=== PATIENT | male | born 1960 | race Caucasian/White ===

== ENCOUNTER 2024-02-21 14:20 | Outpatient (AMB) | payer OTHER, SELFPAY ==
--- NOTE | 2024-02-21 14:27 | MHC.OFFVIS ---
Vital Signs 02/21/24 14:29 Height 5 ft 9 in Weight 180 lb 2 oz BMI 26.6 BP 140/78 H Blood Pressure Location Rt brachial Position Sitting Pulse 52 Pulse Source Pulse Oximeter Pulse Oximetry (%) 98 Oxygen Delivery Method Room Air Intake Visit Reasons: Cough Allergies No Known Allergies Allergy (Verified 02/21/24 14:31) HPI HPI Cough: Details: Zenon is a pleasant 63 year old male, never smoker, with underlying atrial fibrillation, MANINDER, BPH, CKDII and environmental allergies. He was referred by PCP for pulmonary evaluation. He reports new onset cough that developed about two months ago. He reports having increased palpitations and seeking emergent care at [facility], CTA performed which was negative for PE, ultimately being discharged on metoprolol for atrial fibrillation. At that visit, he did report having an elevated WBC. He reports afib dx in 2016 but has not been symptomatic until recent ED evaluation. Shortly after he was evaluated at [facility] he developed a dry cough with associated dyspnea with exertion. He had CXR performed at the start of symptoms which was reportedly negative. He denies further imaging since. He was also sent for fungal studies and mycoplasma pneumonia as he had recently traveled to [place], results not available today. He was then sent for PFT and methacholine challenge, both unremarkable. He was trialed on famotidine for possible silent reflux with no effect. He notes significant environmental allergies as a child, receiving allergen immunotherapy but allergies symptoms resolved as an adult. He notes recent lab work ordered by PCP which reportedly revealed multiple environmental allergies, results not available. He does have two dogs at home, not new. He was using zyrtec with minimal effect and switched to Jesenia as well as Flonase with no change. He also trialed OTC medications including mucinex, saline rinses as well as tessalon perles and codeine cough syrup with no change. He trialed albuterol MDI and singulair with no effect. He was also given a round of doxycycline for acute sinusitis and prednisone with no change in symptoms. He completed course of prednisone yesterday and continues with persistent dry cough, worse at night, intermittent wheezing, hoarseness and persistent throat clearing. He endorses multiple episodes of bronchitis in the past treated with zpak and prednisone however notes episodes were years apart. He reports mother, smoker, with COPD otherwise no pertinent family history. He denies any occupational exposures. He had recent echo and will be following up with model home sales greeter to review results to evaluate for any cardiac component contributing to dyspnea. He denies BLE or orthopnea. Of note, his metoprolol was switched by model home sales greeter to diltiazem with no change in symptoms. FORMERLY [facility], [facility]–1983 Social History (Updated 02/21/24 @ 14:44 by Lauren Zimmer TEACHER DANCING) Patient Tobacco Use Status: Never used Tobacco Review of Systems Const Denies chills, Denies excessive sweating, Denies fever(s) and Denies headache(s) Eyes Denies dry eyes, Denies irritation and Denies itchy eyes ENT Reports Normal hearing present, Denies headache(s), Denies nasal congestion, Denies nasal discharge and Denies sore throat Card Denies chest pain, Denies chest pain at rest, Denies chest pain with activity, Denies claudication, Denies leg edema, Denies orthopnea and Denies paroxysmal nocturnal dyspnea Resp Denies chest congestion, Denies excessive phlegm production, Denies pain on inspiration, Denies pain with cough, Denies stridor and Denies wheezing Musc Denies myalgias Neuro Reports Normal hearing present and Denies headache(s) Endo Denies excessive sweating Fili/Lymph Denies lymphadenopathy Aller/Immun Denies itchy eyes, Denies seasonal rhinorrhea and Denies wheezing Physical Exam Vital Signs: Last Vital Signs Pulse 52 02/21/24 14:29 BP 140/78 H 02/21/24 14:29 Pulse Ox 98 02/21/24 14:29 Oxygen Delivery Method Room Air 02/21/24 14:29 BMI result Body Mass Index 26.6 Const Other: hoarse voice General: cooperative, healthy appearing, comfortable, no acute distress, well developed and alert Orientation/consciousness: patient oriented x3 Limitations: no limitations HEENT Head: Yes normal to inspection, Yes normocephalic and Yes atraumatic Ears: hearing grossly normal bilaterally and external ears normal Eyes General: appearance normal, both eyes and all related structures Eyelids: Yes eyelids normal Sclerae: sclerae normal EOM: EOMs intact bilaterally Neck Neck: Yes normal visual inspection and Yes no lymphadenopathy Lymphatic: no lymphadenopathy noted Chest Chest palpation & inspection: normal inspection of the chest Resp Effort & Inspection: normal respiratory effort, able to speak in complete sentences, no audible wheezes, no cough, no stridor, not tachypneic, no tripod positioning and no use of accessory muscles Auscultation: clear to auscultation bilaterally Cardio Jugular venous distension: no JVD Rate: regular rate Rhythm: regular rhythm Skin Other: warm, dry General skin exam: no rashes or lesions noted Neuro General: patient oriented x3 Cranial nerves: Yes Normal hearing present Cognition (Neuro): normal cognition Gait exam (Neuro): Normal gait present Extrem General: Yes normal to inspection, Yes capillary refill normal, Yes no clubbing, cyanosis or edema and Yes no pedal edema Psych Appearance: grossly normal and well kempt Speech and movement: Normal speech and movement present and Clear speech present Affect: normal affect Attitude: cooperative Thought process: Normal thought process present Thought content: Normal thought content present Insight: Good insight present (Psych) Judgement: Good judgement present (Psych) Assessment & Plan Assessment & Plan (1) Cough: Code(s): R05.9 - Cough, unspecified Category: Medical (2) Environmental allergies: Code(s): Z91.09 - Other allergy status, other than to drugs and biological substances Category: Medical Plan Unclear etiology of persistent dry cough, although there may be an allergic component given prior history of significant allergies. Respiratory exam unremarkable, patient is in no distress, no hypoxia noted and afebrile. PFT and methacholine test unremarkable. Patient does note post nasal drip, will trial ipratropium nasal spray. Will request fungal, mycoplasma and allergen labs from PCP. Will also attempt to obtain CTA imaging from [facility]. Patient notes symptoms began after CTA performed and recent CXR negative. Will send for CT as patient with persistent cough despite trialing multiple medications. All questions were answered and patient is in agreement of plan. Will follow up to review CT results and response to nasal spray. Orders: Orders CT chest wo IV con Today R05.9 - Cough, unspecified Medications: New ipratropium bromide administer into each nostril 2 sprays intranasal BID 30 mL 3RF Coding Level of Care Code New Pt Level 4 (85890) Diagnoses Cough R05.9 Environmental allergies Z91.09
[2024-02-21 14:29] VITALS: BP 140/78; PULSE 52; O2SAT 98; BMI 26.6
== END 2024-02-21 15:22 | disposition home or self-care (01) ==
PROVIDERS: PCP Family Medicine; Referring Provider Family Medicine; Visit Provider Nurse Practitioner Family
DX: R05.9 Cough, unspecified (principal); Z91.09 Other allergy status, other than to drugs and biological substances
CPT/HCPCS: 99204

== ENCOUNTER → 2024-02-21 14:20 | Outpatient (BNVA) | payer OTHER, SELFPAY | PROVIDERS: PCP Family Medicine; Referring Provider Family Medicine; Visit Provider Nurse Practitioner Family ==

== ENCOUNTER 2024-03-06 13:10 | Outpatient (AMB) | payer OTHER, SELFPAY ==
[2024-03-06 13:22] VITALS: BP 132/88; PULSE 57; O2SAT 98; BMI 26.6
--- NOTE | 2024-03-06 13:22 | A.OFFVIS_ITS ---
Vital Signs 3 03/06/24 13:22 Height 5 ft 9 in Weight 180 lb 4 oz BMI 26.6 BP 132/88 Blood Pressure Location Lt brachial Position Sitting Pulse 57 Pulse Source Pulse Oximeter Pulse Oximetry (%) 98 Oxygen Delivery Method Room Air Intake Visit Reasons: Cough/ ER FU ([facility]) Allergies No Known Allergies Allergy (Verified 03/06/24 13:27) HPI HPI Cough/ ER FU ([facility]): Details: Zenon is a pleasant 63 year old male, never smoker, with underlying atrial fibrillation, MANINDER, BPH, CKDII and environmental allergies. He reports new onset cough that developed about 2-3 months ago. He reports having increased palpitations and seeking emergent care at [facility], CTA performed which was negative for PE, ultimately being discharged on metoprolol for atrial fibrillation which was switched to diltiazem by terrazzo tile setter. Shortly after he was evaluated at [facility] he developed a dry cough with associated dyspnea with exertion. He had CXR performed at the start of symptoms which was reportedly negative. He was also sent for fungal studies and mycoplasma pneumonia as he had recently traveled to [place], results not available today. He was then sent for PFT and methacholine challenge, both unremarkable. He was trialed on famotidine for possible silent reflux with no effect. He notes significant environmental allergies as a child, receiving allergen immunotherapy but allergies symptoms resolved as an adult. He notes recent lab work ordered by PCP which reportedly revealed multiple environmental allergies, results not available. He was using zyrtec with minimal effect and switched to Jesenia as well as Flonase with no change. He also trialed OTC medications including mucinex, saline rinses as well as tessalon perles and codeine cough syrup with no change. He trialed albuterol MDI and singulair with no effect. He was also given a round of doxycycline for acute sinusitis with no change in symptoms. At the last visit, he noted minimal change while on prednisone however today reports while on prednisone in the past had improvements then when course was completed, symptoms worsened. Today he presents for an ED follow up. He was evaluated on 03/01/24 for chest pain, palpitations and chronic cough. Upon arrival patient was in RVR 140s, however self converted to NSR. Troponins negative x 2, DDimer negative, no leukocytosis, anemia or electrolyte imbalance. Chest CT performed which revealed multiple ground glass opacities. Report below, images not available today. He continues to report productive cough with clear sputum, cough is worse towards the evening and at night interrupting sleep. He also endorses occasional wheezing. He is scheduled for a follow up with cardiology tomorrow. [facility] Social History Patient Tobacco Use Status: Never used Tobacco Review of Systems Const Denies chills, Denies excessive sweating, Denies fever(s) and Denies headache(s) Eyes Denies dry eyes, Denies irritation and Denies itchy eyes ENT Reports Normal hearing present, Denies headache(s), Denies nasal congestion, Denies nasal discharge and Denies sore throat Card Denies chest pain, Denies chest pain at rest, Denies chest pain with activity, Denies claudication, Denies leg edema, Denies orthopnea and Denies paroxysmal nocturnal dyspnea Resp Denies chest congestion, Denies excessive phlegm production, Denies pain on inspiration, Denies pain with cough and Denies stridor Musc Denies myalgias Neuro Reports Normal hearing present and Denies headache(s) Endo Denies excessive sweating Fili/Lymph Denies lymphadenopathy Aller/Immun Denies itchy eyes and Denies seasonal rhinorrhea Physical Exam Vital Signs: Last Vital Signs Pulse 57 03/06/24 13:22 BP 132/88 03/06/24 13:22 Pulse Ox 98 03/06/24 13:22 Oxygen Delivery Method Room Air 03/06/24 13:22 BMI result Body Mass Index 26.6 Const General: cooperative, healthy appearing, comfortable, no acute distress, well developed and alert Nutritional Appearance: obese Orientation/consciousness: patient oriented x3 Limitations: no limitations HEENT Head: Yes normal to inspection, Yes normocephalic and Yes atraumatic Ears: hearing grossly normal bilaterally and external ears normal Eyes General: appearance normal, both eyes and all related structures Eyelids: Yes eyelids normal Sclerae: sclerae normal EOM: EOMs intact bilaterally Neck Neck: Yes normal visual inspection and Yes no lymphadenopathy Lymphatic: no lymphadenopathy noted Chest Chest palpation & inspection: normal inspection of the chest Resp Other: faint inspiratory bibasilar crackles Effort & Inspection: normal respiratory effort, able to speak in complete sentences, no audible wheezes, no cough, no stridor, not tachypneic, no tripod positioning and no use of accessory muscles Cardio Jugular venous distension: no JVD Rate: regular rate Rhythm: regular rhythm Skin Other: warm, dry General skin exam: no rashes or lesions noted Neuro General: patient oriented x3 Cranial nerves: Yes Normal hearing present Cognition (Neuro): normal cognition Gait exam (Neuro): Normal gait present Extrem General: Yes normal to inspection, Yes capillary refill normal, Yes no clubbing, cyanosis or edema and Yes no pedal edema Psych Appearance: grossly normal and well kempt Speech and movement: Normal speech and movement present and Clear speech present Affect: normal affect Attitude: cooperative Thought process: Normal thought process present Thought content: Normal thought content present Insight: Good insight present (Psych) Judgement: Good judgement present (Psych) Results Reviewed Results Reviewed: Assessment & Plan Assessment & Plan (1) Cough: Code(s): R05.9 - Cough, unspecified Category: Medical (2) Environmental allergies: Code(s): Z91.09 - Other allergy status, other than to drugs and biological substances Category: Medical Plan Will request images of recent CT. Given patient has responded previously to prednisone and possibility of interstitial lung disease, will start on prednisone. Will also give cough syrup with codeine. Patient tolerated previously and aware not to operate any heavy machinery after use. Once reviewed images will call patient if treatment regimen needs to be adjusted. Patient aware if symptoms worsen to seek emergent care. May consider bronchoscopy in the future. Will again request fungal, mycoplasma and allergen labs from PCP. All questions were answered and patient is in agreement of plan. Will call patient after reviewing recent images. Medications: New 2 prednisone see taper instructions Take 4 pills daily for 5 days, then go down by 1 pill every 5 days; 20 days 50 tabs 0RF 10 mg PO DIRECTED 50 tabs 0RF codeine-guaifenesin 10-100 mg/5 mL 10 mL PO Q4-6H PRN 473 mL 0RF cough Coding Level of Care Code Est Pt Level 4 (14746) Diagnoses Cough R05.9 Environmental allergies Z91.09
== END 2024-03-06 13:54 | disposition home or self-care (01) ==
PROVIDERS: PCP Family Medicine; Visit Provider Nurse Practitioner Family
DX: R05.9 Cough, unspecified (principal); Z91.09 Other allergy status, other than to drugs and biological substances
CPT/HCPCS: 99214

== ENCOUNTER → 2024-03-06 13:10 | Outpatient (BNVA) | payer OTHER, SELFPAY | PROVIDERS: PCP Family Medicine; Visit Provider Nurse Practitioner Family ==

== ENCOUNTER 2024-03-27 13:04 | Outpatient (REF) | payer OTHER, SELFPAY | END 2024-03-27 13:05 | disposition home or self-care (01) | LOC: CF 13:04 | DX: Z13.89 Encounter for screening for other disorder (principal) ==

== ENCOUNTER 2024-04-12 07:28 | Outpatient (REF) | payer OTHER, SELFPAY ==
--- NOTE | ~2024-04-12 | CT_ITS ---
EXAMINATION: CT CHEST WITHOUT CONTRAST CLINICAL INFORMATION: Interstitial lung disease. COMPARISON: CT examinations of the chest dated 03/01/2024 and 01/02/2024. TECHNIQUE: Multidetector volumetric CT imaging of the chest was done. Axial MIP volume rendering provided. Sagittal and coronal reformatted images were obtained. This CT examination was performed using dose optimization techniques as appropriate, variously including the following: *Automated exposure control *Adjustment of mA and/or kV according to patient size (this includes techniques or standardized protocols for targeted exams where dose is matched to indication/reason for exam; i.e. extremities or head) *Use of iterative reconstruction technique DLP: 169 mGy-cm FINDINGS: PROJECT MANAGEMENT PROFESSOR: The lungs are symmetrically well-expanded and grossly clear. LUNGS: At the lateral right apex (11:35), a 3 mm noncalcified subpleural nodule is seen. This is stable from 01/02/2024. Laterally within the right upper lobe (11:47), a 2 mm benign pleural-based lymph node is seen. Within the anterior segment of the right upper lobe (11:78), a 1 mm noncalcified nodule is seen. This is stable from 01/02/2024. There is mild bibasilar dependent hyperinflation. There is no new nodule. No mass, infiltrate or groundglass opacity is seen. There is no generalized increase in peripheral interlobular septal markings. No honeycombing is seen. No generalized small airway thickening is seen. No bronchiectasis is seen. The central airways appear patent. MEDIASTINUM: The mediastinum is normal. CORONARY ARTERY CALCIFICATION: None visualized on this study. PLEURA: There is no pleural effusion. No pleural mass or thickening. AXILLA: No lymphadenopathy. UPPER ABDOMEN: Unremarkable. OSSEOUS STRUCTURES: There is multi-level mild spondylosis. No acute or aggressive osseous finding is noted. CT/CT chest wo IV con IMPRESSION: 1. There are small bilateral noncalcified lung nodules, the largest a 3 mm subpleural nodule at the lateral right apex. These are unchanged from 01/02/2024. According to the UPDATED 2017 Fleischner Society recommendations, the advised follow-up imaging for solid nodules < 6 mm is: LOW RISK PATIENT: No routine follow-up. HIGH RISK PATIENT: Optional CT at 12 months. 2. No mass, infiltrate or groundglass opacity is seen. 3. There is no thoracic lymphadenopathy or pleural effusion. 4. There is multi-level mild spondylosis. No acute or aggressive osseous finding is seen. Fleischner guidelines were followed. Electronically signed by: lAdair Ham MD 05/09/2024 10:46 AM EDT
== END 2024-04-12 07:29 | disposition home or self-care (01) ==
LOC: HO.CT 07:28
PROVIDERS: PCP Family Medicine; Visit Provider Nurse Practitioner Family
DX: J84.9 Interstitial pulmonary disease, unspecified (principal)
CPT/HCPCS: 71250

== ENCOUNTER 2024-04-27 11:02 | Outpatient (AMB) | payer OTHER, SELFPAY ==
[2024-04-27 11:26] VITALS: BP 130/76; PULSE 55; O2SAT 99; BMI 25.7
--- NOTE | 2024-04-27 11:26 | MHC.OFFVIS ---
Vital Signs 04/27/24 11:26 Height 5 ft 9 in Weight 174 lb 4 oz BMI 25.7 BP 130/76 Blood Pressure Location Rt brachial Position Sitting Pulse 55 Pulse Source Pulse Oximeter Pulse Oximetry (%) 99 Oxygen Delivery Method Room Air Intake Visit Reasons: cough Allergies No Known Allergies Allergy (Verified 04/27/24 11:29) HPI HPI cough: Details: Zenon is a pleasant 63 year old male, never smoker, with underlying atrial fibrillation, MANINDER, BPH, CKDII and environmental allergies. He reports new onset cough that developed about 3 months ago. At the last visit, he was started on prednisone for developing ILD with complete resolution of symptoms. He notes that he has been able to start exercising again as he feels back to baseline. He denies cough, wheezing, dyspnea or chest tightness. He denies any visits to urgent care or hospitalizations since the last visit. He denies any episodes of atrial fibrillation being triggered. Today he presents to review chest CT results, however not officially read by radiologist. [facility] Social History Patient Tobacco Use Status: Never used Tobacco Review of Systems Const Denies chills, Denies excessive sweating, Denies fever(s), Denies headache(s) and Denies night sweats Eyes Denies dry eyes, Denies irritation and Denies itchy eyes ENT Reports Normal hearing present, Denies headache(s), Denies nasal congestion, Denies nasal discharge, Denies post nasal drip and Denies sore throat Card Denies chest pain, Denies chest pain at rest, Denies chest pain with activity, Denies claudication, Denies leg edema, Denies dyspnea, Denies dyspnea on exertion, Denies orthopnea and Denies paroxysmal nocturnal dyspnea Resp Denies chest congestion, Denies cough, Denies excessive phlegm production, Denies pain on inspiration, Denies pain with cough, Denies dyspnea, Denies dyspnea on exertion, Denies stridor and Denies wheezing Musc Denies myalgias Neuro Reports Normal hearing present and Denies headache(s) Endo Denies excessive sweating Fili/Lymph Denies lymphadenopathy Aller/Immun Denies itchy eyes, Denies seasonal rhinorrhea and Denies wheezing Physical Exam Vital Signs: Last Vital Signs Pulse 55 04/27/24 11:26 BP 130/76 04/27/24 11:26 Pulse Ox 99 04/27/24 11:26 Oxygen Delivery Method Room Air 04/27/24 11:26 BMI result Body Mass Index 25.7 Const General: cooperative, healthy appearing, comfortable, no acute distress, well developed and alert Orientation/consciousness: patient oriented x3 Limitations: no limitations HEENT Head: Yes normal to inspection, Yes normocephalic and Yes atraumatic Ears: hearing grossly normal bilaterally and external ears normal Eyes General: appearance normal, both eyes and all related structures Eyelids: Yes eyelids normal Sclerae: sclerae normal EOM: EOMs intact bilaterally Neck Neck: Yes normal visual inspection and Yes no lymphadenopathy Lymphatic: no lymphadenopathy noted Chest Chest palpation & inspection: normal inspection of the chest Resp Effort & Inspection: normal respiratory effort, able to speak in complete sentences, no audible wheezes, no cough, no stridor, not tachypneic, no tripod positioning and no use of accessory muscles Auscultation: clear to auscultation bilaterally Cardio Jugular venous distension: no JVD Rate: regular rate Rhythm: regular rhythm Skin Other: warm, dry General skin exam: no rashes or lesions noted Neuro General: patient oriented x3 Cranial nerves: Yes Normal hearing present Cognition (Neuro): normal cognition Gait exam (Neuro): Normal gait present Extrem General: Yes normal to inspection, Yes capillary refill normal, Yes no clubbing, cyanosis or edema and Yes no pedal edema Psych Appearance: grossly normal and well kempt Speech and movement: Normal speech and movement present and Clear speech present Affect: normal affect Attitude: cooperative Thought process: Normal thought process present Thought content: Normal thought content present Insight: Good insight present (Psych) Judgement: Good judgement present (Psych) Assessment & Plan Assessment & Plan (1) Cough: Code(s): R05.9 - Cough, unspecified Category: Medical Plan Will call patient with final read when able. Appears to have radiographic improvements as well as patient with significant symptomatic improvements. Discussed possibly tapering prednisone and initiating ICS/LABA. Will continue prednisone for a total of three months. Reviewed possible adverse effects of penitentiary prednisone use. Will also send to assess for any underlying CTD. All questions were answered and patient is in agreement of plan. Will follow up with patient to review results or sooner if needed. Orders: Orders Complete Blood Count Auto Diff 04/27/24 J84.9 - Interstitial pulmonary disease, unspecified Erythrocyte Sedimentation Rate 04/27/24 J84.9 - Interstitial pulmonary disease, unspecified CRP High Sensitivity 04/27/24 J84.9 - Interstitial pulmonary disease, unspecified SHIN Reflex Titer and Pattern 04/27/24 J84.9 - Interstitial pulmonary disease, unspecified Scleroderma 70 Antibody 04/27/24 J84.9 - Interstitial pulmonary disease, unspecified Rheumatoid Factor 04/27/24 J84.9 - Interstitial pulmonary disease, unspecified Sjogren's Antibodies 04/27/24 J84.9 - Interstitial pulmonary disease, unspecified Medications: Refilled prednisone 40 mg (2 x 20 mg) PO DAILY 60 tabs 1RF Coding Level of Care Code Est Pt Level 4 (22699) Diagnoses Cough R05.9
== END 2024-04-27 11:59 | disposition home or self-care (01) ==
PROVIDERS: PCP Family Medicine; Visit Provider Nurse Practitioner Family
DX: R05.9 Cough, unspecified (principal)
CPT/HCPCS: 99214

== ENCOUNTER → 2024-04-27 11:02 | Outpatient (BNVA) | payer OTHER, SELFPAY | PROVIDERS: PCP Family Medicine; Visit Provider Nurse Practitioner Family ==

== ENCOUNTER 2024-04-27 12:46 | Outpatient (REF) | payer OTHER, SELFPAY ==
[2024-04-27 14:52] LABS: MANUAL DIFF FLAG NO
[2024-04-27 15:01] LABS: Basophils Percent Auto 0.1 % (0-2); Eosinophils Percent Auto 0.1 % (0-4); Hemoglobin 14.1 g/dl (14.0-18.0); Imm Gran Pct Auto 0.7 % (0.0-0.4); Lymphocytes Absolute Auto 0.9 X10*3/uL (1.2-4.9); Lymphocytes Percent Auto 6.6 % (20-40); Mean Corpuscular HGB Conc 33.6 g/dl (31.0-36.0); Mean Corpuscular Hemoglobin 30.7 pg (27.0-33.0); Mean Corpuscular Volume 91.5 fL (80.0-98.0); Mean Platelet Volume 11.5 fL (9.4-12.4); Monocytes Absolute Auto 0.5 X10*3/uL (0.1-1.2); Monocytes Percent Auto 3.7 % (2-11); Neutrophils Absolute Auto 11.9 x10*3/uL (2.0-8.3); Neutrophils Percent Auto 88.8 % (45-73); Platelet Count 215 X10*3/uL (160-400); Red Blood Count 4.59 X10*6/uL (4.60-5.80); Red Cell Distribution Width 13.9 % (11.0-16.0); White Blood Count 13.4 X10*3/uL (4.8-10.8)
[2024-04-27 15:10] LABS: Rheumatoid Factor < 13.0 IU/mL (<15.0)
[2024-04-27 15:43] LABS: Erythrocyte Sedimentation Rate 11 MM/HR (0-15)
[2024-04-29 15:54] LABS: Anti Nuclear Antibody Screen NEGATIVE (NEGATIVE)
[2024-04-30 08:53] LABS: CRP High Sensitivity >20.0 mg/L
[2024-05-01 20:42] LABS: Antibody to SS-A Antigen <1.0 NEG AI (<1.0 NEG); Antibody to SS-B Antigen <1.0 NEG AI (<1.0 NEG); Scleroderma 70 Antibody <1.0 NEG AI (<1.0 NEG)
== END 2024-04-27 12:47 | disposition home or self-care (01) ==
LOC: HO.WFDLDS 12:46
PROVIDERS: Visit Provider Nurse Practitioner Family
DX: J84.9 Interstitial pulmonary disease, unspecified (principal)
CPT/HCPCS: 36415; 85025; 85652; 86038; 86141; 86235; 86431

== ENCOUNTER 2024-06-05 14:54 | Outpatient (AMB) | payer OTHER, SELFPAY ==
--- NOTE | 2024-06-05 14:09 | A.OFFVIS_ITS ---
Vital Signs 06/05/24 15:03 Height 5 ft 9 in Weight 174 lb 2 oz BMI 25.7 BP 140/68 H Blood Pressure Location Lt brachial Position Sitting Pulse 66 Pulse Source Pulse Oximeter Pulse Oximetry (%) 98 Oxygen Delivery Method Room Air Intake Visit Reasons: Cough/[facility] ER Follow Up Allergies No Known Allergies Allergy (Verified 06/05/24 15:06) HPI HPI Cough/[facility] ER Follow Up: Details: Zenon is a pleasant 63 year old male, never smoker, with underlying atrial fibrillation, MANINDER, BPH, CKDII and environmental allergies. He reports new onset cough that developed about 3 months ago. At the last visit, he was started on prednisone for developing ILD with complete resolution of symptoms. He noted that he has been able to start exercising again as he feels back to baseline. He denies cough, wheezing, dyspnea or chest tightness. Unfortunately, he was recently evaluated at [facility] ED for increased episodes of atrial fibrillation which he was previously discussed with supervisor green end department who felt increased epsiodes are related to underlying ILD. Workup unremarkable through [facility]. EKG NSR. CT reported revealed improvements overall however continues with bibasilar ggo. Images not available today. He denies dyspnea, wheezing or chest tightness. He reports dry cough only when afib episodes occur. Otherwise respiratory symptoms have been controlled. [facility] Social History Patient Tobacco Use Status: Never used Tobacco Review of Systems Const Denies chills, Denies excessive sweating, Denies fever(s), Denies headache(s) and Denies night sweats Eyes Denies dry eyes, Denies irritation and Denies itchy eyes ENT Reports Normal hearing present, Denies headache(s), Denies nasal congestion, Denies nasal discharge, Denies post nasal drip and Denies sore throat Card Denies chest pain, Denies chest pain at rest, Denies chest pain with activity, Denies claudication, Denies leg edema, Denies dyspnea, Denies dyspnea on exertion, Denies orthopnea and Denies paroxysmal nocturnal dyspnea Resp Denies chest congestion, Denies cough, Denies excessive phlegm production, Denies pain on inspiration, Denies pain with cough, Denies dyspnea, Denies dyspnea on exertion, Denies stridor and Denies wheezing Musc Denies myalgias Neuro Reports Normal hearing present and Denies headache(s) Endo Denies excessive sweating Fili/Lymph Denies lymphadenopathy Aller/Immun Denies itchy eyes, Denies seasonal rhinorrhea and Denies wheezing Physical Exam Vital Signs: Last Vital Signs Pulse 66 06/05/24 15:03 BP 140/68 H 06/05/24 15:03 Pulse Ox 98 06/05/24 15:03 Oxygen Delivery Method Room Air 06/05/24 15:03 BMI result Body Mass Index 25.7 Const General: cooperative, healthy appearing, comfortable, no acute distress, well developed and alert Orientation/consciousness: patient oriented x3 Limitations: no limitations HEENT Head: Yes normal to inspection, Yes normocephalic and Yes atraumatic Ears: hearing grossly normal bilaterally and external ears normal Eyes General: appearance normal, both eyes and all related structures Eyelids: Yes eyelids normal Sclerae: sclerae normal EOM: EOMs intact bilaterally Neck Neck: Yes normal visual inspection and Yes no lymphadenopathy Lymphatic: no lymphadenopathy noted Chest Chest palpation & inspection: normal inspection of the chest Resp Effort & Inspection: normal respiratory effort, able to speak in complete sentences, no audible wheezes, no cough, no stridor, not tachypneic, no tripod positioning and no use of accessory muscles Auscultation: clear to auscultation bilaterally Cardio Jugular venous distension: no JVD Rate: regular rate Rhythm: regular rhythm Skin Other: warm, dry General skin exam: no rashes or lesions noted Neuro General: patient oriented x3 Cranial nerves: Yes Normal hearing present Cognition (Neuro): normal cognition Gait exam (Neuro): Normal gait present Extrem General: Yes normal to inspection, Yes capillary refill normal, Yes no clubbing, cyanosis or edema and Yes no pedal edema Psych Appearance: grossly normal and well kempt Speech and movement: Normal speech and movement present and Clear speech present Affect: normal affect Attitude: cooperative Thought process: Normal thought process present Thought content: Normal thought content present Insight: Good insight present (Psych) Judgement: Good judgement present (Psych) Assessment & Plan Assessment & Plan (1) Cough: Code(s): R05.9 - Cough, unspecified Category: Medical Plan Patient with increasing episodes of atrial fibrillation attributing to prednisone and interested in tapering. At this time, he denies any respiratory symptoms currently. During recent ED evaluation chest CT was performed, will obtain images. All questions were answered and patient is in agreement of plan. Will follow up in 6 weeks or sooner. Coding Level of Care Code Est Pt Level 3 (63304) Diagnoses Cough R05.9
[2024-06-05 15:03] VITALS: BP 140/68; PULSE 66; O2SAT 98; BMI 25.7
== END 2024-06-05 15:44 | disposition home or self-care (01) ==
PROVIDERS: PCP Family Medicine; Visit Provider Nurse Practitioner Family
DX: R05.9 Cough, unspecified (principal)
CPT/HCPCS: 99213

== ENCOUNTER → 2024-06-05 14:54 | Outpatient (BNVA) | payer OTHER, SELFPAY | PROVIDERS: PCP Family Medicine; Visit Provider Nurse Practitioner Family ==

== ENCOUNTER 2024-07-17 10:49 | Outpatient (AMB) | payer OTHER, SELFPAY ==
--- NOTE | 2024-07-17 10:40 | MHC.OFFVIS ---
Vital Signs 07/17/24 10:51 Height 5 ft 9 in Weight 177 lb 8 oz BMI 26.2 BP 134/68 Blood Pressure Location Rt brachial Position Sitting Pulse 57 Pulse Source Pulse Oximeter Pulse Oximetry (%) 99 Oxygen Delivery Method Room Air Intake Visit Reasons: Cough Allergies No Known Allergies Allergy (Verified 07/17/24 10:54) HPI HPI Cough: Details: Zenon is a pleasant 64 year old male, never smoker, with underlying atrial fibrillation, MANINDER, BPH, CKDII and environmental allergies. He reported new onset cough that developed about 6 months ago, CT revealed likely evolving ILD and was started on prednisone with resolution of symptoms. At the last visit, he noted his atrial fibrillation episodes were more frequent, with minimal respiratory symptoms and began tapering off prednisone. He has completely tapered off prednisone and discontinued diltiazem with resolution of respiratory symptoms and atrial fibrillation events. He denies any visits to urgent care or hospitalizations related to respiratory distress. He does not increased post nasal drip and will be trialing an antihistamine vs nasal spray. [facility] Social History Patient Tobacco Use Status: Never used Tobacco Review of Systems Const Denies chills, Denies excessive sweating, Denies fever(s), Denies headache(s) and Denies night sweats Eyes Denies dry eyes, Denies irritation and Denies itchy eyes ENT Reports Normal hearing present, Denies headache(s), Denies nasal congestion, Denies nasal discharge, Denies post nasal drip and Denies sore throat Card Denies chest pain, Denies chest pain at rest, Denies chest pain with activity, Denies claudication, Denies leg edema, Denies dyspnea, Denies dyspnea on exertion, Denies orthopnea and Denies paroxysmal nocturnal dyspnea Resp Denies chest congestion, Denies cough, Denies excessive phlegm production, Denies pain on inspiration, Denies pain with cough, Denies dyspnea, Denies dyspnea on exertion, Denies stridor and Denies wheezing Musc Denies myalgias Neuro Reports Normal hearing present and Denies headache(s) Endo Denies excessive sweating Fili/Lymph Denies lymphadenopathy Aller/Immun Denies itchy eyes, Denies seasonal rhinorrhea and Denies wheezing Physical Exam Vital Signs: Last Vital Signs Pulse 57 07/17/24 10:51 Pulse Ox 99 07/17/24 10:51 Oxygen Delivery Method Room Air 07/17/24 10:51 BMI result Body Mass Index 26.2 Const General: cooperative, healthy appearing, comfortable, no acute distress, well developed and alert Orientation/consciousness: patient oriented x3 Limitations: no limitations HEENT Head: Yes normal to inspection, Yes normocephalic and Yes atraumatic Ears: hearing grossly normal bilaterally and external ears normal Eyes General: appearance normal, both eyes and all related structures Eyelids: Yes eyelids normal Sclerae: sclerae normal EOM: EOMs intact bilaterally Neck Neck: Yes normal visual inspection and Yes no lymphadenopathy Lymphatic: no lymphadenopathy noted Chest Chest palpation & inspection: normal inspection of the chest Resp Effort & Inspection: normal respiratory effort, able to speak in complete sentences, no audible wheezes, no cough, no stridor, not tachypneic, no tripod positioning and no use of accessory muscles Auscultation: clear to auscultation bilaterally Cardio Jugular venous distension: no JVD Rate: regular rate Rhythm: regular rhythm Skin Other: warm, dry General skin exam: no rashes or lesions noted Neuro General: patient oriented x3 Cranial nerves: Yes Normal hearing present Cognition (Neuro): normal cognition Gait exam (Neuro): Normal gait present Extrem General: Yes normal to inspection, Yes capillary refill normal, Yes no clubbing, cyanosis or edema and Yes no pedal edema Psych Appearance: grossly normal and well kempt Speech and movement: Normal speech and movement present and Clear speech present Affect: normal affect Attitude: cooperative Thought process: Normal thought process present Thought content: Normal thought content present Insight: Good insight present (Psych) Judgement: Good judgement present (Psych) Assessment & Plan Assessment & Plan (1) Cough: Code(s): R05.9 - Cough, unspecified Category: Medical Plan Zenon reports resolution of cough since discontinuing prednisone. Denies chest tightness, wheezing or dyspnea. If symptoms start to recur will restart Breo. Encouraged patient to trial nasal spray or anithistamine for post nasal drip. Patient self d/c diltiazem and will be calling cardiology to discuss. All questions were answered and patient is in agreement of plan. Will follow up in 3 months or sooner if needed. Coding Level of Care Code Est Pt Level 3 (38157) Diagnoses Cough R05.9
[2024-07-17 10:51] VITALS: BP 134/68; PULSE 57; O2SAT 99; BMI 26.2
== END 2024-07-17 11:13 | disposition home or self-care (01) ==
PROVIDERS: PCP Family Medicine; Visit Provider Nurse Practitioner Family
DX: R05.9 Cough, unspecified (principal)
CPT/HCPCS: 99213

== ENCOUNTER → 2024-07-17 10:49 | Outpatient (BNVA) | payer OTHER, SELFPAY | PROVIDERS: PCP Family Medicine; Visit Provider Nurse Practitioner Family ==

== ENCOUNTER 2024-11-07 10:50 | Outpatient (AMB) | payer OTHER, SELFPAY ==
--- NOTE | 2024-11-07 10:59 | A.OFFVIS_ITS ---
Vital Signs 11/07/24 11:00 Height 5 ft 9 in Weight 190 lb BMI 28.1 BP 118/70 Blood Pressure Location Rt brachial Position Sitting Pulse 58 Pulse Source Pulse Oximeter Pulse Oximetry (%) 100 Oxygen Delivery Method Room Air Intake Visit Reasons: Cough Manager Dental Services: Manager Dental Offered & Declined Customer Service Teller: Customer Service Teller offered & declined Accompanied by: Self / Same As Patient Allergies No Known Allergies Allergy (Verified 11/07/24 11:06) Medication List - Last Reconciled 11/07/24 by Dianne Washburn LPN albuterol sulfate 90 mcg/actuation 2 puffs inhalation Q6H PRN cetirizine (Allergy Relief (cetirizine)) 10 mg PO DAILY PRN codeine-guaifenesin 10-100 mg/5 mL 10 mL PO Q4-6H PRN diltiazem HCl ER 120 mg PO DAILY famotidine 40 mg PO DAILY fluticasone furoate-vilanterol 200-25 mcg/dose (Breo Ellipta) 1 inh inhalation DAILY fluticasone propionate 50 mcg/actuation (Flonase Allergy Relief) 2 sprays intranasal DAILY gabapentin 200 mg at hs orally bedtime; ipratropium bromide 2 sprays intranasal BID prednisone 40 mg (2 x 20 mg) PO DAILY sertraline (Zoloft) 50 mg PO DAILY HPI HPI Cough: Details: Zenon is a pleasant 64 year old male, never smoker, with underlying atrial fibrillation, MANINDER, BPH, CKDII and environmental allergies. He was initialled referred after persistent dry cough developed over the summer. CT revealed likely evolving ILD with multiple areas of ggo. Initially trialed a short course of steroids for inflammatory process however once tapered/completed his symptoms recurred that were interfering with his daily activities. He has since completed a three month course of prednisone with resolution of symptoms. Repeat chest CT unremarkable from 05/2024. At the last visit, he noted his atrial fibrillation episodes were more frequent, with minimal respiratory symptoms and began tapering off prednisone. He has completely tapered off prednisone and discontinued diltiazem with resolution of respiratory symptoms and atrial fibrillation events. Unfortunately he reports over the last few weeks dry cough, occasionally productive in the AM with clear sputum and chest tightness have recurred. He denies dyspnea. Of note, he reports new prescription for metoprolol 25 mg which he will be restarting from cardiology, recent echo and EKG reportedly unremarkable. He also notes increased muscle fatigue as well as joint pain/stiffness in elbows, fingers, hips and ankles. Prior SHIN, RF, Scl-70, Anti- SSA and Anti-SSB, negative however CRP elevated. He denies any family history of autoimmune conditions. Since the last visit he denies any visits to urgent care or hospitalizations related to respiratory distress. [facility] Social History Patient Tobacco Use Status: Never used Tobacco Review of Systems Const Denies chills, Denies excessive sweating, Denies fever(s), Denies headache(s) and Denies night sweats Eyes Denies dry eyes, Denies irritation and Denies itchy eyes ENT Reports Normal hearing present, Denies headache(s), Denies nasal congestion, Denies nasal discharge, Denies post nasal drip and Denies sore throat Card Denies chest pain, Denies chest pain at rest, Denies chest pain with activity, Denies claudication, Denies leg edema, Denies dyspnea, Denies dyspnea on exertion, Denies orthopnea and Denies paroxysmal nocturnal dyspnea Resp Denies chest congestion, Denies excessive phlegm production, Denies pain on inspiration, Denies pain with cough, Denies dyspnea, Denies dyspnea on exertion, Denies stridor and Denies wheezing Musc Denies myalgias Neuro Reports Normal hearing present and Denies headache(s) Endo Denies excessive sweating Fili/Lymph Denies lymphadenopathy Aller/Immun Denies itchy eyes, Denies seasonal rhinorrhea and Denies wheezing Physical Exam Vital Signs: Last Vital Signs Pulse 58 11/07/24 11:00 BP 118/70 11/07/24 11:00 Pulse Ox 100 11/07/24 11:00 Oxygen Delivery Method Room Air 11/07/24 11:00 BMI result Body Mass Index 28.1 Const General: cooperative, healthy appearing, comfortable, no acute distress, well developed and alert Orientation/consciousness: patient oriented x3 Limitations: no limitations HEENT Head: Yes normal to inspection, Yes normocephalic and Yes atraumatic Ears: hearing grossly normal bilaterally and external ears normal Eyes General: appearance normal, both eyes and all related structures Eyelids: Yes eyelids normal Sclerae: sclerae normal EOM: EOMs intact bilaterally Neck Neck: Yes normal visual inspection and Yes no lymphadenopathy Lymphatic: no lymphadenopathy noted Chest Chest palpation & inspection: normal inspection of the chest Resp Effort & Inspection: normal respiratory effort, able to speak in complete sentences, no audible wheezes, no cough, no stridor, not tachypneic, no tripod positioning and no use of accessory muscles Auscultation: clear to auscultation bilaterally Cardio Jugular venous distension: no JVD Rate: regular rate Rhythm: regular rhythm Skin Other: warm, dry General skin exam: no rashes or lesions noted Neuro General: patient oriented x3 Cranial nerves: Yes Normal hearing present Cognition (Neuro): normal cognition Gait exam (Neuro): Normal gait present Extrem General: Yes normal to inspection, Yes capillary refill normal, Yes no clubbing, cyanosis or edema and Yes no pedal edema Psych Appearance: grossly normal and well kempt Speech and movement: Normal speech and movement present and Clear speech present Affect: normal affect Attitude: cooperative Thought process: Normal thought process present Thought content: Normal thought content present Insight: Good insight present (Psych) Judgement: Good judgement present (Psych) Assessment & Plan Assessment & Plan (1) Cough: Code(s): R05.9 - Cough, unspecified Category: Medical (2) Interstitial lung disease: Code(s): J84.9 - Interstitial pulmonary disease, unspecified Category: Medical (3) Joint pain: Code(s): M25.50 - Pain in unspecified joint Category: Medical Plan Zenon reports recurrence of cough which previously resolved with prednisone for evolving ILD. Will send for Chest CT to assess for recurrence of inflammatory process consistent with ILD. Will also repeat labs, prior CRP elevated before initiating prednisone. Encouraged patient to restart Breo. All questions were answered and patient is in agreement of plan. Will follow up to review results or sooner if needed. Orders: Orders Hypersensitive Pneumonitis Prf 11/07/24 J84.9 - Interstitial pulmonary disease, unspecified, R05.9 - Cough, unspecified CT chest wo IV con Today J84.9 - Interstitial pulmonary disease, unspecified, R 05.9 - Cough, unspecified CRP High Sensitivity 11/07/24 J84.9 - Interstitial pulmonary disease, unspecified, R05.9 - Cough, unspecified SHIN Reflex Titer and Pattern 11/07/24 M25.50 - Pain in unspecified joint Medications: Refilled fluticasone furoate-vilanterol 200-25 mcg/dose (Breo Ellipta) rinse mouth after each use 1 inh inhalation DAILY 60 ea 6RF Discontinued prednisone Discontinued Reason: Patient Completed Course 40 mg (2 x 20 mg) PO DAILY 60 tabs 1RF prednisone see taper instructions 30 mg x 7 days, 20 mg x 7 days, 10 mg x 7 days, 5 mg x 7 days Discontinued Reason: Patient Completed Course 10 mg PO DIRECTED 47 tabs 0RF Coding Level of Care Code Est Pt Level 4 (11610) Diagnoses Cough R05.9 Interstitial lung disease J84.9 Joint pain M25.50
[2024-11-07 11:00] VITALS: BP 118/70; PULSE 58; O2SAT 100; BMI 28.1
== END 2024-11-07 11:43 | disposition home or self-care (01) ==
LOC: HO.HPSW 10:51
PROVIDERS: PCP Family Medicine; Visit Provider Nurse Practitioner Family
DX: R05.9 Cough, unspecified (principal); J84.9 Interstitial pulmonary disease, unspecified; M25.50 Pain in unspecified joint
CPT/HCPCS: 99214

== ENCOUNTER → 2024-11-07 10:50 | Outpatient (BNVA) | payer OTHER, SELFPAY | PROVIDERS: PCP Family Medicine; Visit Provider Nurse Practitioner Family ==

== ENCOUNTER 2024-12-24 07:16 | Outpatient (REF) | payer OTHER, SELFPAY ==
--- NOTE | ~2024-12-24 | CT_ITS ---
CLINICAL HISTORY: J84.9 - Interstitial pulmonary disease, unspecified CT chest without contrast Comparison: CT/ME/SR - CT CHEST WO IV CON - 04/12/24 07:38 EDT Findings: The heart size is normal. The visualized thyroid and mediastinum are unremarkable. No evidence of pneumonia or edema. Stable lung nodules. For example, no change in the 3 mm nodule within the right posterolateral apex (image 14). No new pulmonary nodules. No evidence of interstitial lung disease. No focal air trapping. No bronchiectasis. The visualized upper abdomen is unremarkable. No acute fractures. IMPRESSION: 1. Stable small pulmonary nodules. No further follow-up necessary unless otherwise clinically warranted. 2. No evidence of interstitial lung disease. This document has been electronically signed by: Yamila Vela MD on 12/24/2024 14:31:53
--- OUTSIDE RECORDS SUMMARY | 2024-12-24 07:18 | XMS_ITS | Clinical Summary ---
Author Organization [facility] Facility Address [address] [address] Care Team Providers Care Exam Proctor Name Role Phone Candice Salas MD Primary Care Provider [phone] Allergies No known active allergies Medications aspirin (ST ANGI) 81 MG EC tablet Take 81 mg by mouth 1 (one) time each day Active metoprolol succinate XL (TOPROL XL) 50 MG 24 hr tablet Take 50 mg by mouth 1 (one) time each day Do not crush or chew. Active cetirizine (ZyrTEC) 10 MG chewable tablet Chew 10 mg 1 (one) time each day Active tamsulosin (FLOMAX) 0.4 MG 24 hr capsule Take 0.4 mg by mouth 1 (one) time each day Active fluticasone (VERAMYST) 27.5 MCG/SPRAY nasal spray Administer 2 sprays into each nostril 1 (one) time each day Active gabapentin (NEURONTIN) 600 MG tablet Take 600 mg by mouth in the morning and 600 mg in the evening and 600 mg before bedtime. Active Active Problems Problem Noted Date Diagnosed Date Chronic kidney disease stage 2 Family History Medical History Relation Comments Heart disease Father Hypertension Father Hypertension Mother Cancer Sibling Relation Status Comments Father Alive Mother Alive Sibling Social History Tobacco Use Types Packs/Day Years Used Date Smoking Tobacco: Never Alcohol Use Standard Drinks/Week Comments Yes 0 (1 standard drink = 0.6 oz pure alcohol) Alcoholic Drinks/day: 1-2 drinks per day Sex and Gender Information Value Date Recorded Sex Assigned at Not on file Legal Sex Male 4:42 PM EST Gender Identity Not on file Sexual Orientation Not on file Last Filed Vital Signs Vital Sign Reading Time Taken Comments Blood Pressure - - Pulse - - Temperature - - Respiratory Rate - - Oxygen Saturation - - Inhaled Oxygen Concentration - - Weight 79.4 kg (175 lb) 06/24/2022 2:55 PM EST Height - - Body Mass Index - - Plan of Treatment Health Maintenance Due Date Last Done Comments Pneumococcal Vaccine: 50+ Years (1 of 2 - PCV) 1980 Colorectal Cancer Screening: Annual FOBT 2010 Colorectal Cancer Screening: Colonoscopy 2010 Colorectal Cancer Screening: Sigmoidoscopy 2010 Influenza Vaccine (Season Ended) 2025 06/01/2022, 05/26/2021, 05/19/2020, Additional history exists Hepatitis B Vaccine Aged Out 12/10/1999, 07/18/1999, 06/05/1999 No longer eligible based on patient's age to complete this topic Insurance [employer] Care Teams Exam Proctor Relationship Specialty Start Date End Date Candice Salas MD [address] [id number] PCP - General Family Medicine 06/24/22
--- OUTSIDE RECORDS SUMMARY | 2024-12-24 07:19 | XMS_ITS | Data Portability ---
Author Organization [facility], Main Office Address [address] [facility] [address] [place] [id number] Care Team Providers Care Plastic Parts Fabricator Trimmer Name Role Phone GILDARDO SOLIS Urologist CAMI BUNDY Intern Product Marketing Manager ARUN WEN Master Motorcycle Technician PEREZ POON Primary Care Provider [phone] [facility] Pain[facility] [employer] [facility] Web Development Instructor Assessment No assessment recorded. Plan of Treatment Reminders Order Date Submit Date Provider Last Modified By Organization Details Last Modified Time Details Appointments None recorde d. Lab ESR (erythr ocyte sedimen tation rate), blood 2024 025 BREE [facility], [address] [place], [address], 22:05:49 uric acid, serum or plasma 2024 025 BREE [facility], [address] [place], [address], 5 22:05:48 rf (rheuma toid factor) , serum 2024 025 BREE [facility], [address] [place], [address], 22:05:47 SHIN (antinu clear antibod ies) screen, ifa, serum 2024 025 BREE [facility], [address], [place], [address], 22:05:46 borreli a burgdor feri IgG + IgM + total panel, IA, serum 2024 025 BREE [facility], [address], [place], [address], 22:05:48 TSH + free T4, serum 2024 025 BREE [facility] (Centralized Electronic Ordering - All Locations), Patient Can Go To The Location Of Their Choice, 08:08:31 CK (creati ne kinase) , total, serum 2024 025 BREE [facility] (Centralized Electronic Ordering - All Locations), Patient Can Go To The Location Of Their Choice, 08:08:32 CBC w/ auto diff 2024 025 N[facility]), Patient Can Go To The Location Of Their Choice, 08:08:29 erythro cyte sedimen tation rate by benerg marilia method 2024 025 NECHE [facility] ([facility] Order[facility] - All Locations), Patient Can Go To The Location Of Their Choice, 08:08:30 C reactiv e protein , QN, serum or plasma 2024 025 NECHE [facility] ([facility] Order[facility] - All Locations), Patient Can Go To The Location Of Their Choice, 08:08:32 lactate dehydro genase, QN, lactate to pyruvat e reactio n, serum or plasma 2024 025 BREE [facility] ([facility] - All Locations), Patient Can Go To The Location Of Their Choice, 08:08:30 CMP, serum or plasma 2024 025 BREE [facility] (Centralized Electronic Ordering - All Locations), Patient Can Go To The Location Of Their Choice, [id number] 5 08:08:28 heterop hile Ab, qualita tive latex aggluti nation, serum 2024 025 BREE [facility] (Centralized Electronic Ordering - All Locations), Patient Can Go To The Location Of Their Choice, [address] 5 08:08:31 lipid panel, serum 2023 024 [email or web address] [facility] (Centralized Electronic Ordering - All Locations), Patient Can Go To The Location Of Their Choice, [address] 4 09:22:12 CMP, serum or plasma 2023 024 BREE [facility] (Centralized Electronic Ordering - All Locations), Patient Can Go To The Location Of Their Choice, [address] 5 06:08:39 HbA1c (hemogl obin A1c), blood 2023 024 BREE [facility] (Centralized Electronic Ordering - All Locations), Patient Can Go To The Location Of Their Choice, [address] 5 06:08:41 Referral None recorde d. Procedures None recorde d. Surgeries None recorde d. Imaging XR, temporo mandibu lar joint, bilater al - Jaw pains for 2 months especia lly with chewing and yawning . 2024 025 [email or web address], [facility] [place], [address], 09:14:50 XR, cervica l spine - neck pain over last couple of weeks. 2024 025 christine [facility], [address] [place], [address], 09:14:49 US, neck, soft tissue - Swellin g at right neck at jaw line. R/o mass. 2024 025 brandi [facility], [address] [place], [address], 5 09:57:29 Medication Orders gabapen tin 100 mg capsule 2024 025 [email or web address] [facility]acy #1234, [address] [place], [address], 5 13:16:20 amoxici llin 875 mg-pota ssium clavula alysha 125 mg tablet 2024 025 [facility]acy #1234, [address] [place], [address], 5 11:40:18 gabapen tin 100 mg capsule 2024 025 [email or web address] [facility]acy #1234, [address] [place], [address], 5 12:55:37 sertral ine 25 mg tablet 2023 025 [facility]acy #1234, [address] [place], [address], 5 08:56:50 cetiriz ine 10 mg tablet 2023 024 [facility] [address] [place], [address], 4 11:03:45 Patient TargetsNo targets recorded. Patient Instructions Encounter Date Encounter Id Patient Instructions Last Modified By Organization Details Last Modified Time 07/06/2024 [id number] eustachian tube problems: care instructions jthabet Not available 07/06/2024 11:04:07 middle ear fluid : care instructions jthabet Not available 07/06/2024 11:04:07 To call or retur n for worsening or concerns jthabet Not available 07/06/2024 10:54:50 08/06/2024 [id number] When You Want to Lose Weight: Care Instructions ckokar Not available 08/06/2024 09:16:32 interstitial gt g disease: care instructions ckokar Not available 08/06/2024 09:16:00 Well Visit 50 to 65: Care Instructions ckokar Not available 08/06/2024 09:16:01 prediabetes: car e instructions ckokar Not available 08/06/2024 09:16:01 medicines to radu id with kidney disease: care instructions ckokar Not available 08/06/2024 09:16:00 When You Want to Lose Weight: Care Instructions ckokar Not available 08/06/2024 09:16:32 09/04/2024 [id number] To call or retur n for worsening or concerns jthabet Not available 09/04/2024 09:02:20 10/30/2024 [id number] temporomandibula r disorder: care instructions [email or web address] Not available 10/30/2024 13:20:58 Reason for Referral None Reported. Results Created Date Observation Date Name Description Value Unit Range Abnormal Flag Note LastModifiedBy Organization Detail LastModifiedTime 08/29/1908/29/2024 COMP. METAB OLIC PANEL (14) glucose 86 mg/dL 70-99 normal Not Available [facility] ([facility]) [address] [place], [address], 08/30/2024 06:08:39 08/29/19 25 08/29/2024 COMP. METAB OLIC PANEL (14) BUN 16 mg/dL 8-27 normal Not Available [facility] ([facility]) [address] [place], [address], 08/30/2024 06:08:39 08/29/19 25 08/29/2024 COMP. METAB OLIC PANEL (14) creatinine 1.14 mg/dL 0.76-1 .27 normal Not Available [facility] ([facility]) [address] [place], [address], 08/30/2024 06:08:39 08/29/19 25 08/29/2024 COMP. METAB OLIC PANEL (14) eGFR 72 mL/mi n/1.7 3 >59 normal Not Available [facility] ([facility]) [address] [place], [address], 08/30/2024 06:08:39 08/29/19 25 08/29/2024 COMP. METAB OLIC PANEL (14) BUN/creatini ne ratio 14 10-24 normal Not Available [facility] ([facility]) [address] [facility] [place], [address], 08/30/2024 06:08:39 08/29/19 25 08/29/2024 COMP. METAB OLIC PANEL (14) sodium 145 mmol/ L 134-14 4 above high normal Not Available [facility] ([facility]) [address] [facility] [place], [address], 08/30/2024 06:08:39 08/29/19 25 08/29/2024 COMP. METAB OLIC PANEL (14) potassium 4.4 mmol/ L 3.5-5. 2 normal Not Available [facility] ([facility]) [address] [facility] [place], [address], 08/30/2024 06:08:39 08/29/19 25 08/29/2024 COMP. METAB OLIC PANEL (14) chloride 106 mmol/ L 96-106 normal Not Available [facility] ([facility]) [address] [facility] [place], [address], 08/30/2024 06:08:39 08/29/19 25 08/29/2024 COMP. METAB OLIC PANEL (14) carbon dioxide, total 25 mmol/ L 20-29 normal Not Available [facility] ([facility]) [address] [facility] [place], [address], 08/30/2024 06:08:39 08/29/19 25 08/29/2024 COMP. METAB OLIC PANEL (14) calcium 9.1 mg/dL 8.6-10 .2 normal Not Available [facility] ([facility]) [address] [facility] [place], [address], 08/30/2024 06:08:39 08/29/19 25 08/29/2024 COMP. METAB OLIC PANEL (14) protein, total 6.4 g/dL 6.0-8. 5 normal Not Available [facility] ([facility]) [address] [place], [address], 08/30/2024 06:08:39 08/29/19 25 08/29/2024 COMP. METAB OLIC PANEL (14) albumin 4.2 g/dL 3.9-4. 9 normal Not Available [facility] ([facility]) [address] [place], [address], 08/30/2024 06:08:39 08/29/19 25 08/29/2024 COMP. METAB OLIC PANEL (14) globulin, total 2.2 g/dL 1.5-4. 5 Not Available [facility] ([facility]) [address] [place], [address], 08/30/2024 06:08:39 08/29/19 25 08/29/2024 COMP. METAB OLIC PANEL (14) bilirubin, total <0.2 mg/dL 0.0-1. 2 Not Available [facility] ([facility]) [address] [facility] [place], [address], 08/30/2024 06:08:39 08/29/19 25 08/29/2024 COMP. METAB OLIC PANEL (14) alkaline phosphatase 88 IU/L 44-121 normal Not Available [facility]) [address] [facility] [place], [address], 08/30/2024 06:08:39 08/29/19 25 08/29/2024 COMP. METAB OLIC PANEL (14) AST (SGOT) 31 IU/L 0-40 normal Not Available [facility] ([facility]) [address] [facility] [place], [address], 08/30/2024 06:08:39 08/29/19 25 08/29/2024 COMP. METAB OLIC PANEL (14) ALT (SGPT) 30 IU/L 0-44 normal Not Available [facility] ([facility]) [address] [facility] [place], [address], 08/30/2024 06:08:39 08/29/19 25 08/29/2024 LIPID PANEL cholesterol, total 204 mg/dL 100-19 9 above high normal Not Available [facility] ([facility]) [address] [facility] [place], [address], 08/30/2024 06:08:40 08/29/19 25 08/29/2024 LIPID PANEL triglyceride s 143 mg/dL 0-149 normal Not Available [facility] ([facility]) [address] [facility] [place], [address], 08/30/2024 06:08:40 08/29/19 25 08/29/2024 LIPID PANEL HDL cholesterol 47 mg/dL >39 normal Not Available [facility] ([facility]) [address] [place], [address], 08/30/2024 06:08:40 08/29/19 25 08/29/2024 LIPID PANEL VLDL cholesterol patricia 26 mg/dL 5-40 Not Available [facility] ([facility]) [address] [place], [address], 08/30/2024 06:08:40 08/29/19 25 08/29/2024 LIPID PANEL LDL chol calc ([facility]) 131 mg/dL 0-99 above high normal Not Available [facility] ([facility]) [address] [place], [address], 08/30/2024 06:08:40 08/29/19 25 08/29/2024 LIPID PANEL LDL calc comment: HEEL SLICKER Not Available [facility] ([facility]) [address] [place], [address], 08/30/2024 06:08:40 08/29/19 25 08/29/2024 HEMOG LOBIN A1C hemoglobin A1C 5.4 % 4.8-5. 6 normal Predi abete s: 5.7 - 6.4 Diabe martina: >6.4 Glyce lisa contr ol for adult s with diabe martina: <7.0 Not Available [facility] ([facility]) [address] [facility], [place], [address], 08/30/2024 06:08:41 09/04/19 25 09/04/2024 CMP14 (REFL EX HGB A1C) glucose 92 mg/dL 70-99 normal Not Available [facility] ([facility]) [address] [place], [address], 09/05/2024 08:08:28 09/04/19 25 09/04/2024 CMP14 (REFL EX HGB A1C) BUN 17 mg/dL 8-27 normal Not Available [facility] ([facility]) [address] [place], [address], 09/05/2024 08:08:28 09/04/19 25 09/04/2024 CMP14 (REFL EX HGB A1C) creatinine 1.12 mg/dL 0.76-1 .27 normal Not Available [facility] ([facility]) [address] [place], [address], 09/05/2024 08:08:28 09/04/19 25 09/04/2024 CMP14 (REFL EX HGB A1C) eGFR 74 mL/mi n/1.7 3 >59 normal Not Available [facility] ([facility]) [address] [place], [address], 09/05/2024 08:08:28 09/04/19 25 09/04/2024 CMP14 (REFL EX HGB A1C) BUN/creatini ne ratio 15 10-24 normal Not Available [facility] ([facility]) [address] [place], [address], 09/05/2024 08:08:28 09/04/19 25 09/04/2024 CMP14 (REFL EX HGB A1C) sodium 144 mmol/ L 134-14 4 normal Not Available [facility] ([facility]) [address] [place], [address], 09/05/2024 08:08:28 09/04/19 25 09/04/2024 CMP14 (REFL EX HGB A1C) potassium 4.4 mmol/ L 3.5-5. 2 normal Not Available [facility] ([facility]) [address] [place], [address], 09/05/2024 08:08:28 09/04/19 25 09/04/2024 CMP14 (REFL EX HGB A1C) chloride 107 mmol/ L 96-106 above high normal Not Available [facility] ([facility]) [address] [place], [address], 09/05/2024 08:08:28 09/04/19 25 09/04/2024 CMP14 (REFL EX HGB A1C) carbon dioxide, total 24 mmol/ L 20-29 normal Not Available [facility] ([facility]) [address] [place], [address], 09/05/2024 08:08:28 09/04/19 25 09/04/2024 CMP14 (REFL EX HGB A1C) protein, total 6.5 g/dL 6.0-8. 5 normal Not Available [facility] ([facility]) [address] [place], [address], 09/05/2024 08:08:28 09/04/19 25 09/04/2024 CMP14 (REFL EX HGB A1C) albumin 4.2 g/dL 3.9-4. 9 normal Not Available [facility] ([facility]) [address] [place], [address], 09/05/2024 08:08:28 09/04/19 25 09/04/2024 CMP14 (REFL EX HGB A1C) globulin, total 2.3 g/dL 1.5-4. 5 Not Available [facility] ([facility]) [address] [place], [address], 09/05/2024 08:08:28 09/04/19 25 09/04/2024 CMP14 (REFL EX HGB A1C) bilirubin, total <0.2 mg/dL 0.0-1. 2 Not Available [facility] ([facility]) [address] [place], [address], 09/05/2024 08:08:28 09/04/19 25 09/04/2024 CMP14 (REFL EX HGB A1C) alkaline phosphatase 85 IU/L 44-121 normal Not Available [facility]) [address] [facility], [place], [address], 09/05/2024 08:08:28 09/04/19 25 09/04/2024 CMP14 (REFL EX HGB A1C) AST (SGOT) 30 IU/L 0-40 normal Not Available [facility] ([facility]) [address] [place], [address], 09/05/2024 08:08:28 09/04/19 25 09/04/2024 CMP14 (REFL EX HGB A1C) ALT (SGPT) 31 IU/L 0-44 normal Not Available [facility] ([facility]) [address] [place], [address], 09/05/2024 08:08:28 09/04/19 25 09/05/2024 CMP14 (REFL EX HGB A1C) calcium 9.3 mg/dL 8.6-10 .2 normal Not Available [facility] ([facility]) [address] [place], [address], 09/05/2024 08:08:28 09/04/19 25 09/04/2024 CBC WITH DIFFE RENTI AL/PL ATELE T WBC 6.8 x10e3 /uL 3.4-10 .8 normal Not Available [facility] ([facility]) [address] [facility], [place], [address], 09/05/2024 08:08:29 09/04/19 25 09/04/2024 CBC WITH DIFFE RENTI AL/PL ATELE T RBC 4.45 x10e6 /uL 4.14-5 .80 normal Not Available [facility] ([facility]) [address] [facility], [place], [address], 09/05/2024 08:08:29 09/04/19 25 09/04/2024 CBC WITH DIFFE RENTI AL/PL ATELE T hemoglobin 13.7 g/dL 13.0-1 7.7 normal Not Available [facility] ([facility]) [address] [facility], [place], [address], 09/05/2024 08:08:29 09/04/19 25 09/04/2024 CBC WITH DIFFE RENTI AL/PL ATELE T hematocrit 42.4 % 37.5-5 1.0 normal Not Available [facility] ([facility]) [address] [place], [address], 09/05/2024 08:08:29 09/04/19 25 09/04/2024 CBC WITH DIFFE RENTI AL/PL ATELE T MCV 95 fL 79-97 normal Not Available [facility] ([facility]) [address] [place], [address], 09/05/2024 08:08:29 09/04/19 25 09/04/2024 CBC WITH DIFFE RENTI AL/PL ATELE T MCH 30.8 pg 26.6-3 3.0 normal Not Available [facility] ([facility]) [address] [place], [address], 09/05/2024 08:08:29 09/04/19 25 09/04/2024 CBC WITH DIFFE RENTI AL/PL ATELE T MCHC 32.3 g/dL 31.5-3 5.7 normal Not Available [facility] ([facility]) [address] [facility], [place], [address], 09/05/2024 08:08:29 09/04/19 25 09/04/2024 CBC WITH DIFFE RENTI AL/PL ATELE T RDW 12.1 % 11.6-1 5.4 Not Available [facility] ([facility]) [address] [facility], [place], [address], 09/05/2024 08:08:29 09/04/19 25 09/04/2024 CBC WITH DIFFE RENTI AL/PL ATELE T platelets 263 x10e3 /uL 150-45 0 normal Not Available [facility] ([facility]) [address] [facility], [place], [address], 09/05/2024 08:08:29 09/04/19 25 09/04/2024 CBC WITH DIFFE RENTI AL/PL ATELE T neutrophils 49 % not estab. normal Not Available [facility] ([facility]) [address] [facility], [place], [address], 09/05/2024 08:08:29 09/04/19 25 09/04/2024 CBC WITH DIFFE RENTI AL/PL ATELE T lymphs 38 % not estab. normal Not Available [facility] ([facility]) [address] [facility], [place], [address], 09/05/2024 08:08:29 09/04/19 25 09/04/2024 CBC WITH DIFFE RENTI AL/PL ATELE T monocytes 10 % not estab. normal Not Available [facility] ([facility]) [address] [place], [address], 09/05/2024 08:08:29 09/04/19 25 09/04/2024 CBC WITH DIFFE RENTI AL/PL ATELE T eos 3 % not estab. normal Not Available [facility] ([facility]) [address] [place], [address], 09/05/2024 08:08:29 09/04/19 25 09/04/2024 CBC WITH DIFFE RENTI AL/PL ATELE T basos 0 % not estab. normal Not Available [facility] ([facility]) [address] [facility], [place], [address], 09/05/2024 08:08:29 09/04/19 25 09/04/2024 CBC WITH DIFFE RENTI AL/PL ATELE T immature cells HEEL SLICKER Not Available [facility] ([facility]) [address] [facility], [place], [address], 09/05/2024 08:08:29 09/04/19 25 09/04/2024 CBC WITH DIFFE RENTI AL/PL ATELE T neutrophils (absolute) 3.3 x10e3 /uL 1.4-7. 0 normal Not Available [facility] ([facility]) [address] [facility], [place], [address], 09/05/2024 08:08:29 09/04/19 25 09/04/2024 CBC WITH DIFFE RENTI AL/PL ATELE T lymphs (absolute) 2.6 x10e3 /uL 0.7-3. 1 normal Not Available [facility] ([facility]) [address] [facility], [place], [address], 09/05/2024 08:08:29 09/04/19 25 09/04/2024 CBC WITH DIFFE RENTI AL/PL ATELE T monocytes(ab solute) 0.7 x10e3 /uL 0.1-0. 9 normal Not Available [facility] ([facility]) [address] [place], [address], 09/05/2024 08:08:29 09/04/19 25 09/04/2024 CBC WITH DIFFE RENTI AL/PL ATELE T eos (absolute) 0.2 x10e3 /uL 0.0-0. 4 normal Not Available [facility] ([facility]) [address] [facility], [place], [address], 09/05/2024 08:08:29 09/04/19 25 09/04/2024 CBC WITH DIFFE RENTI AL/PL ATELE T baso (absolute) 0.0 x10e3 /uL 0.0-0. 2 normal Not Available [facility] ([facility]) [address] [facility], [place], [address], 09/05/2024 08:08:29 09/04/19 25 09/04/2024 CBC WITH DIFFE RENTI AL/PL ATELE T immature granulocytes 0 % not estab. Not Available [facility] ([facility]) [address] [facility], [place], [address], 09/05/2024 08:08:29 09/04/19 25 09/04/2024 CBC WITH DIFFE RENTI AL/PL ATELE T immature grans (abs) 0.0 x10e3 /uL 0.0-0. 1 Not Available [facility] ([facility]) [address] [facility], [place], [address], 09/05/2024 08:08:29 09/04/19 25 09/04/2024 CBC WITH DIFFE RENTI AL/PL ATELE T NRBC HEEL SLICKER Not Available [facility] ([facility]) [address] [facility], [place], [address], 09/05/2024 08:08:29 09/04/19 25 09/04/2024 CBC WITH DIFFE RENTI AL/PL ATELE T hematology comments: HEEL SLICKER Not Available [facility] ([facility]) [address] [facility], [place], [address], 09/05/2024 08:08:29 09/04/19 25 09/05/2024 LDH LDH 197 IU/L 121-22 4 Not Available [facility] ([facility]) [address] [facility], [place], [address], 09/05/2024 08:08:30 09/04/19 25 09/05/2024 SEDIM ENTAT ION RATE- WESTE RGREN sedimentatio n rate-westerg marilia 22 mm/HR 0-30 normal Not Available [facility] ([facility]) [address] [place], [address], 09/05/2024 08:08:30 09/04/19 25 09/05/2024 MONO QUAL W/RFL X QN mono qual w/rflx qn Negati ve negati ve The sensi tivit y of Heter ophil e antib eugenie testi ng is 80-90 %. Epste in Vick IgM testi ng offer s highe r sensi tivit y. Not Available [facility] ([facility]) [address] [place], [address], 09/05/2024 08:08:31 09/04/19 25 09/05/2024 C-GABE CTIVE PROTE IN, QUANT C-reactive protein, quant 3 mg/L 0-10 normal Not Available [facility] ([facility]) [address] [place], [address], 09/05/2024 08:08:32 09/18/19 25 09/19/2024 TSH+F REE T4 TSH 2.810 uIU/m L 0.450- 4.500 normal Not Available [facility] ([facility]) [address] [place], [address], 09/19/2024 08:08:31 09/18/19 25 09/19/2024 TSH+F REE T4 T4,free(dire ct) 1.14 NG/dL 0.82-1 .77 normal Not Available [facility] ([facility]) [address] [place], [address], 09/19/2024 08:08:31 09/18/19 25 09/19/2024 CREAT INE KINAS E,TOT AL creatine kinase,total 100 U/L 41-331 normal Not Available [facility] ([facility]) [address] [facility], [place], [address], 09/19/2024 08:08:32 10/31/19 25 11/15/2024 ANTI- NUCLE AR AB BY IFA (RDL) anti-nuclear Ab by ifa (rdl) Positi ve negati ve abnormal Not Available [facility] [address] [place], [address], 11/15/2024 22:05:46 10/31/19 25 11/15/2024 ANTI- NUCLE AR AB BY IFA (RDL) homogeneous pattern HEEL SLICKER Not Available [facility] [address] [place] [address], [address], 11/15/2024 22:05:46 10/31/19 25 11/15/2024 ANTI- NUCLE AR AB BY IFA (RDL) nucleolar pattern HEEL SLICKER Not Available [facility] [address] [place] [address], [address], 11/15/2024 22:05:46 10/31/19 25 11/15/2024 ANTI- NUCLE AR AB BY IFA (RDL) speckled pattern 1:80 <1:40 above high normal Not Available [facility] [address] [place], [address], 11/15/2024 22:05:46 10/31/19 25 11/15/2024 ANTI- NUCLE AR AB BY IFA (RDL) centromere pattern HEEL SLICKER Not Available [facility] [address] [place] [address], [address], 11/15/2024 22:05:46 10/31/19 25 11/15/2024 ANTI- NUCLE AR AB BY IFA (RDL) spindle apparatus pattern HEEL SLICKER Not Available [facility] [address] [place] [address], [address], 11/15/2024 22:05:46 10/31/19 25 11/15/2024 ANTI- NUCLE AR AB BY IFA (RDL) nuclear membrane pattern HEEL SLICKER Not Available [facility] [address] [place], [address], 11/15/2024 22:05:46 10/31/19 25 11/15/2024 ANTI- NUCLE AR AB BY IFA (RDL) midbody pattern HEEL SLICKER Not Available [facility] [address] [place], [address], 11/15/2024 22:05:46 10/31/19 25 11/15/2024 ANTI- NUCLE AR AB BY IFA (RDL) nuclear dot pattern HEEL SLICKER Not Available [facility] [address] [place], [address], 11/15/2024 22:05:46 10/31/19 25 11/15/2024 ANTI- NUCLE AR AB BY IFA (RDL) pcna pattern HEEL SLICKER Not Available [facility] [address] [place], [address], 11/15/2024 22:05:46 10/31/19 25 11/15/2024 ANTI- NUCLE AR AB BY IFA (RDL) centriole pattern HEEL SLICKER Not Available [facility] [address] [place], [address], 11/15/2024 22:05:46 10/31/19 25 11/15/2024 ANTI- NUCLE AR AB BY IFA (RDL) note: Commen t SHIN perfo rmed by Indir ect Fluor escen t Antib eugenie (IFA) Not Available [facility] [address] [place] [address], [address], 11/15/2024 22:05:46 10/31/19 25 10/31/2024 RHEUM ATOID FACTO R (RF) rheumatoid factor (rf) 12.0 IU/mL <14.0 normal Not Available [facility] ([facility]) [address] [facility], [place], [address], 11/15/2024 22:05:47 10/31/19 25 10/31/2024 LYME DISEA SE SEROL OGY W/REF RUEL lyme total antibody kathie Negati ve negati ve Lyme antib odies not detec dina. Refle x testi ng is not indic ated. No labor atory evide nce of infec tion with B. burgd orfer i (Lyme disea se). Negat aimee resul ts may occur in patie nts recen tly infec dina (less than or equal to 14 days) with B. burgd orfer i. If recen t infec tion is suspe cted, repea t testi ng on a new sampl e colle cted in 7 to 14 days is recom vinny d. Not Available [facility] ([facility]) [address] [facility], [place], [address], 11/15/2024 22:05:48 10/31/19 25 10/31/2024 URIC ACID uric acid 6.5 mg/dL 3.8-8. 4 normal Thera peuti c targe t for gout patie nts: <6.0 Not Available [facility] ([facility]) [address] [facility], [place], [address], 11/15/2024 22:05:48 10/31/19 25 10/31/2024 SEDIM ENTAT ION RATE- WESTE RGREN sedimentatio n rate-westerg marilia 2 mm/HR 0-30 normal Not Available [facility] ([facility]) [address] [facility], [place], [address], 11/15/2024 22:05:49 10/02/19 25 10/02/2024 US, head + neck, soft tissu e Ultras ound of the right neck dated 2024. No prior studie s are availa ble. HISTOR Y: Palpab le abnorm ality. FINDIN GS: Target ed right neck ultras ound shows no eviden ce of mass, fluid collec tion or absces s. A couple of benign -appea ring lymph nodes are noted. IMPRES DAVID: No ultras onogra phic eviden ce of abnorm ality. Thank you for lucy arellano me to partic ipate in the care of this patien t. WSN: [id number] Orderi ng Physic robert: Jack Gauthier Dictat ed By: Barron Zamarripa MD Dictat ed Date/T garfield: 2:04 pm Review ed By: Barron Zamarripa MD Signed By: Barron Zamarripa MD Signed Date/T garfield: 2:04 pm Transc ribed By: KULWANT Transc ribed Date/T garfield: 2:04 pm Patien t Class: Outpat ient [facility] (Outpt Imaging) [address] [facility], [place], [address], 10/02/2024 15:54:14 10/31/19 25 10/30/2024 XR, cervi patricia spine , 4 or 5 view Cervic al Spine 4 or 5 Views Reason : neck pain for weeks COMPAR SARA: None. FINDIN GS: Verteb ral body height , curvat ure, and alignm ent are normal . There is severe disc space narrow ing at C6-7 with anteri or osteop hytes from C4-C7. Mild caterpillar driver ior disc ridgin g is also seen at C6-7. Spinou s proces ses are intact . C1-C2 alignm ent is normal . There is narrow ing of both neural forame n at C6-7, modera te on the right and mild on the left due to uncove rtebra l spurri ng. Remain ing neural forame n appear patent . Normal prever tebral soft tissue s and clear lung apices . IMPRES DAVID: Degene rative change s, mainly at C6-7 as descri bed. WSN: [id number] Orderjunior arellano Physic robert: Jack Gauthier Dictat ed By: Michelle Morales MD Dictat ed Date/T garfield: 4:21 pm Review ed By: Michelle Morales MD Signed By: Michelle Morales MD Signed Date/T garfield: 4:21 pm Transc ribed By: KULWANT Transc ribed Date/T garfield: 4:20 pm Patien t Class: Outpat ient [facility] (Outpt Imaging) [address] [place], [address], 10/31/2024 17:42:41 11/01/1910/30/2024 TMJ bilat open/ close d [facility] TMJ Bilat Open/C losed INDICA TION: Bilate ral jaw pain for two months brittany with chewin g and yawnin g COMPAR SARA: None TECHNI QUE: 5 views of the mandib le and TMJ. Dynami c imagin g was perfor med with open and closed mouth positi oning. FINDIN GS: No mandib ular fractu re or bone lesion . Expect ed positi oning of the mandib ular condyl e with open and closed mouth positi oning. IMPRES DAVID: No mandib ular fractu re or bone lesion . No TMJ sublux ation is appare nt with dynami c imagin g. WSN: [id number] Orderi ng Physic robert: Jack Gauthier Dictat ed By: Ibrahima Walsh MD Dictat ed Date/T garfield: 10:23 a Review ed By: Ibrahima Walsh MD Signed By: Ibrahima Walsh MD Signed Date/T garfield: 10:23 am Transc ribed By: KULWANT Transc ribed Date/T garfield: 10:21 am Patien t Class: Outpat ient [facility] (Outpt Imaging) [address] [place], [address], 10/31/2024 17:42:42 11/02/1910/31/2022 XR, tempo eriberto dibul ar joint , bilat eral No observ ation record ed. [email or web address] [facility] [address] [place], [address], 11/09/2024 09:13:55 Result Notes None recorded. Problems Name Problem SNOMED Code Status Onset Date Resolution Date Notes Provider Name and Address Organization Details Recorded Time Acute sinusiti s 78121490 Completed 201203/05/2014 RECORDED 12/29/19 13 11:35AM BY JUDI LEO I, ANNOTATI ON/ADDEN DUM Not Available [facility] 4 14:46:08 Allergic rhinitis 31084535 Active 2013 Not Available [facility] 2 15:35:40 Anemia 846884693 Completed 200903/05/2014 RECORDED 07/20/20 10 2:22PM BY LANDON BURT MD, ANNOTATI ON/ADDEN DUM Not Available [facility] 4 14:46:08 Sprain of ankle 42492909 Completed 201203/05/2014 RECORDED 12/29/19 13 11:35AM BY JUDI LOE I ANNOTATI ON/ADDEN DUM Not Available [facility] 4 14:46:08 Adult health examinat ion Completed 201203/05/2014 RECORDED 03/26/20 13 9:16AM BY GEOVANNY BRENNAN MA, ANNOTATI ON/ADDEN DUM CARIDAD Kathleen AL - [facility] 6 15:29:17 Anxiety state 513904925 Active 2012 Not Available [facility] 2 15:35:40 Cellulit is and abscess of hand excludin g digits Completed 200903/05/2014 RECORDED 05/13/20 10 11:17AM BY RIKI BRIGHTATI ON/ADDEN DUM Not Available [facility] 4 14:46:09 Screenin g for malignan t neoplasm of colon Completed 201203/05/2014 RECORDED 12/29/19 13 11:35AM BY JUDI LEO I, ANNOTATI ON/ADDEN DUM Not Available [facility] 4 14:46:09 Constipa tion 17717448 Completed 201203/05/2014 RECORDED 12/29/19 13 11:35AM BY JUDI LEO I ANNOTATI ON/ADDEN DUM Not Available [facility] 4 14:46:09 Contact dermatit is 48491448 Completed 200803/05/2014 RECORDED 03/20/20 09 10:45AM BY CARIDAD KEITH, ANNOTATI ON/ADDEN DUM Not Available [facility] 4 14:46:09 Contusio n of chest 77982635 Completed 201203/05/2014 RECORDED 12/29/19 13 11:35AM BY JUDI LEO I ANNOTATI ON/ADDEN DUM Not Available [facility] 4 14:46:09 Cough 90638610 Completed 201203/05/2014 IMPRESSI ON: NORMAL LUNG EXAM, C/W VIRAL INFECTIO N; RECORDED 12/29/19 13 11:35AM BY JUDI LEO I ANNOTATI ON/ADDEN DUM CARIDAD Kathleen, [facility] 6 15:29:29 Lesion of ulnar nerve 226181786 Completed 201203/05/2014 RECORDED 12/29/19 13 11:35AM BY JUDI LEO I ANNOTATI ON/ADDEN DUM Landon Burt MD [address], [place], [address] , [facility] 8 09:24:54 Dysfunct ion of eustachi an tube 53877827 Completed 201203/05/2014 RECORDED 12/29/19 13 11:35AM BY JUDI LEO I ANNOTATI ON/ADDEN DUM Not Available [facility] 4 14:46:09 Malaise and fatigue 901581019 Completed 201203/05/2014 RECORDED 12/29/19 13 11:35AM BY JUDI LEO I ANNOTATI ON/ADDEN DUM Perez Poon MD [address], [place], [address] , [facility] 2 09:16:43 Blood in urine 47070077 Completed 200803/05/2014 RECORDED 03/20/20 09 10:45AM BY VIOLETTA BRIGHT ON/ADDEN DUM Not Available [facility] 4 14:46:09 Hyperlip idemia 62813522 Completed 201307/17/2019 Comfort Adamson PA-C [address], [place], [address] , [facility] 9 11:35:00 Neck pain 66222048 Completed 200803/05/2014 IMPRESSI ON: LEFT SCM STRAIN; RECORDED 03/20/20 09 10:45AM BY VIOLETTA BRIGHT ON/ADDEN DUM Not Available [facility] 4 14:46:09 Administ ration of bacteria l and viral vaccine Completed 200703/05/2014 RECORDED 04/03/20 08 2:08PM BY GEOVANNY BRENNAN MA, OFFICE VISIT Not Available [facility] 4 14:46:09 Patient status finding [id number] Completed 201304/01/2016 CARIDAD Kathleen, [facility] 6 15:29:02 Patient status finding [id number] Completed 201203/05/2014 RECORDED 03/26/20 13 9:17AM BY GEOVANNY BRENNAN MA, ANNOTATI ON/ADDEN DUM CARIDAD Kathleen, [facility] 6 15:29:02 Palpitat ions 37819689 Completed 201003/05/2014 RECORDED 02/18/20 11 9:51AM BY GEOVANNY BRENNAN MA, VIOLETTA ON/ADDEN DUM Not Available [facility] 4 14:46:09 Disorder of knee 368089795 Completed 201203/05/2014 RECORDED 03/26/20 13 9:17AM BY GEOVANNY BRENNAN MA, ANNOTATI ON/ADDEN DUM Comfort Adamson PA-C [address], [place], [address] , [facility] 9 11:34:27 Prostati tis 9635601 Completed 201203/05/2014 RECORDED 12/29/19 13 11:35AM BY JUDI LEO I ANNOTATI ON/ADDEN DUM Not Available [facility] 4 14:46:10 Epidermo id cyst of skin 109333167 Completed 201207/16/2018 Landon Burt MD [address], [place], [address] , [facility] 8 09:24:57 Lesion of ulnar nerve 441096019 Completed 201307/16/2018 Landon Burt MD [address], [place], [address] , [facility] 8 09:24:54 Urinary tract infectio us disease 15429832 Completed 201203/05/2014 RECORDED 12/29/19 13 11:35AM BY RIKI SARMIENTOATI ON/ADDEN DUM Not Available [facility] 4 14:46:10 Acute sinusiti s 47911331 Completed 201203/25/2014 RECORDED 12/29/19 13 11:35AM BY JUDI LEO I ANNOTATI ON/ADDEN DUM Not Available [facility] 4 06:51:02 Anemia 546099711 Completed 200903/25/2014 RECORDED 07/20/20 10 2:22PM BY LANDON BURT MD, ANNOTATI ON/ADDEN DUM Not Available [facility] 4 06:51:02 Sprain of ankle 57068848 Completed 201203/25/2014 RECORDED 12/29/19 13 11:35AM BY RIKI SARMIENTOATI ON/ADDEN DUM Not Available [facility] 4 06:51:02 Adult health examinat ion Completed 201304/01/2016 CARIDAD Kathleen, [facility] 6 15:29:17 Anxiety state 186643195 Completed 201303/25/2014 RECORDED 01/16/20 14 7:43AM BY JUDI LEO I, ANNOTATI ON/ADDEN DUM CARIDAD Kathleen, [facility] 6 15:29:14 Cellulit is and abscess of hand excludin g digits Completed 200903/25/2014 RECORDED 05/13/20 10 11:17AM BY CARIDAD KEITH, ANNOTATI ON/ADDEN DUM Not Available [facility] 4 06:51:02 Screenin g for malignan t neoplasm of colon Completed 201203/25/2014 RECORDED 12/29/19 13 11:35AM BY JUDI LEO I, ANNOTATI ON/ADDEN DUM Not Available [facility] 4 06:51:02 Constipa tion 58384729 Completed 201203/25/2014 RECORDED 12/29/19 13 11:35AM BY JUDI LEO I, ANNOTATI ON/ADDEN DUM Not Available [facility] 4 06:51:02 Contact dermatit is 96949433 Completed 200803/25/2014 RECORDED 03/20/20 09 10:45AM BY CARIDAD KEITH, ANNOTATI ON/ADDEN DUM Not Available [facility] 4 06:51:02 Contusio n of chest 33491830 Completed 201203/25/2014 RECORDED 12/29/19 13 11:35AM BY JUDI LEO I ANNOTATI ON/ADDEN DUM Not Available [facility] 4 06:51:02 Cough 18205528 Completed 201203/25/2014 IMPRESSI ON: NORMAL LUNG EXAM, C/W VIRAL INFECTIO N; RECORDED 12/29/19 13 11:35AM BY JUDI LEO I, ANNOTATI ON/ADDEN DUM CARIDAD Kathleen, [facility] 6 15:29:29 Lesion of ulnar nerve 529024238 Completed 201203/25/2014 RECORDED 12/29/19 13 11:35AM BY JUDI LEO I, RIKIATI ON/ADDEN DUM Landon Burt MD [address], [place], [address] , [facility] 8 09:24:54 Dysfunct ion of eustachi an tube 06580600 Completed 201203/25/2014 RECORDED 12/29/19 13 11:35AM BY JUDI LEO I, RIKIATI ON/ADDEN DUM Not Available [facility] 4 06:51:02 Blood in urine 46962670 Completed 200803/25/2014 RECORDED 03/20/20 09 10:45AM BY CARIDAD KEITH, RIKIATI ON/ADDEN DUM Not Available [facility] 4 06:51:02 Medial epicondy litis 18121787 Completed 201307/16/2018 Landon Burt MD [address], [place], [address] , [facility] 8 09:24:59 Neck pain 30005582 Completed 200803/25/2014 IMPRESSI ON: LEFT SCM STRAIN; RECORDED 03/20/20 09 10:45AM BY CARIDAD KEITH, RIKIATI ON/ADDEN DUM Not Available [facility] 4 06:51:02 Administ ration of bacteria l and viral vaccine Completed 200703/25/2014 RECORDED 04/03/20 08 2:08PM BY GEOVANNY BRENNAN MA, OFFICE VISIT Not Available [facility] 4 06:51:02 Palpitat ions 55761795 Completed 201003/25/2014 RECORDED 02/18/20 11 9:51AM BY GEOVANNY BRENNAN MA, ANNOTATI ON/ADDEN DUM Not Available [facility] 4 06:51:02 Disorder of knee 217236032 Completed 201307/17/2019 Comfort Adamson PA-C [address], [place], [address] , [facility] 9 11:34:27 Prostati tis 4800459 Completed 201203/25/2014 RECORDED 12/29/19 13 11:35AM BY JUDI LEO I, ANNOTATI ON/ADDEN DUM Not Available [facility] 4 06:51:02 Adult health examinat ion Completed 200803/25/2014 RECORDED 03/20/20 09 10:45AM BY CARIDAD KEITH, ANNOTATI ON/ADDEN DUM CARIDAD Kathleen, [facility] 6 15:29:17 Epidermo id cyst of skin 220860902 Completed 201303/25/2014 RECORDED 01/16/20 14 7:43AM BY JUDI LEO I, ANNOTATI ON/ADDEN DUM Landon Burt MD [address], [place], [address] , [facility] 8 09:24:57 Urinary tract infectio us disease 95328622 Completed 201203/25/2014 RECORDED 12/29/19 13 11:35AM BY JUDI LEO I, ANNOTATI ON/ADDEN DUM Not Available [facility] 4 06:51:03 Cough 31734967 Completed 04/01/2016 CARIDAD Kathleen, [facility] 6 15:29:29 Fatigue 17259980 Completed 07/17/2019 Parveen carlson, [facility] 9 11:11:20 Serum creatini ne above referenc e range 645115288 Completed 08/03/2023 Perez Poon MD [address], [place], [address] , [facility] 3 06:49:55 Complain ing of - postnasa l drip Completed 07/02/2017 Stefanie Melton MA null, [facility] 7 09:16:48 Atrial fibrilla tion 14734870 Completed 201702/06/2018 Andrew Adamson PA-C [address], [place], [address] , [facility] 8 14:05:44 Paroxysm al atrial fibrilla tion 333811728 Active 2017 Not Available [facility] 2 15:35:40 Benign prostati c hyperpla nish 435837204 Active 2017 Not Available [facility] 2 15:35:40 Chronic kidney disease stage 2 937755536 Active 2018 Not Available [facility] 2 12:19:55 Hypertri glycerid emia 127715505 Active 2018 Not Available [facility] 2 15:35:40 Obstruct aimee sleep apnea syndrome 86849334 Active 2018 Not Available [facility] 2 15:35:40 COVID-19 324779486 Completed 202112/14/2021 Perez Poon MD [address], [place], [address] , [facility] 2 09:15:51 Environm ental allergy 214271609 Active Not Available [facility] 2 15:35:40 Intersti tial lung disease 596942626 Active 2023 Perez Poon MD [address], [place], [address] , [facility] 4 17:07:24 Dysfunct ion of bilatera l eustachi an tubes 82351414449 39373 Completed 202308/06/2024 Perez Poon MD [address], [place], [address] , [facility] 4 09:10:15 Acute right otitis media 570020042 Active 2024 Sarah Poe, [facility] [address], [place], [address] , [facility] 5 09:00:09 Pain of multiple joints 25047179 Active 2024 Sarah Poe [facility] [address], [place], [address] , [facility] 5 09:01:27 Cervical lymphade nopathy 462738917 Active 2024 Sarah Poe, [facility] [address] [facility] [address], [place], [address] , [facility] 5 09:01:45 Problem Notes None recorded. Procedures Surgical History Date Name Laterality Status Provider Name and Address Organization Details Recorded Time 1 Colonoscopy completed Chuyita Pza [facility] 06/08/2021 11:13:51 6 Tonsillectomy completed Geovanny avitia MA [facility] 05/27/2017 13:09:15 Imaging Results Imaging Date Name Status LastModified by Organization Details LastModified Time 10/02/2024 US, head + neck, soft tissue completed [facility] ([facility]) [address] [place], [address], 10/02/2024 15:54:14 10/30/2024 XR, cervical spine, 4 or 5 view completed [facility]) [address] [place], [address], 10/31/2024 17:42:41 10/30/2024 TMJ bilat open/closed completed [facility] ([facility]) [address] [place], [address], 10/31/2024 17:42:42 10/31/2022 XR, temporomandibular joint, bilateral completed [email or web address] [facility] [address] [facility], [place], [address], 11/09/2024 09:13:55 Procedure Notes None recorded. Medical Equipment None Reported. Allergies Allergen ID Allergen Name Allergen Category Reaction Reaction Severity Criticality Documentation Date Start Date Code Code System Note Provider Name and Address Organization Details Recorded Time 19441 Non-stero idal anti-infl ammatory agent (product) medicatio n Not available Not available Not available 04/19/2018 26799 005 SNOMED Cause d kidne y disea se by overu se Katerine Hook MA [facility] 2 14:55:01 01114 Flonase medicatio n headache Not available Not available 03/03/2020 73778 RxNorm [facility]ie Melton [facility] 2 09:04:21 Medications Name Sig Start Date Stop Date Status Note LastModified by Organization Details LastModified Time cyclobenz aprine 10 mg tablet Take 1 tablet every day by oral route for 10 days. 10/31 completed Not Available Not Available Not Available budesonid e 32 mcg/actua tion nasal spray TAKE 2 SPRAYS EVERY DAY BY NASAL ROUTE DIRECTED active Not Available Not Available No t Available budesonid e 32 mcg/actua tion nasal spray,aer osol QD 02/17 completed RECORDED 02/18/20 11 10:05AM BY GEOVANNY BRENNAN MA, OFFICE VISIT; Not Available Not Available Not Available flaxseed oil Take 1 mL every day by miscell. route. 05/27 completed Not Available Not Available Not Available prednison e 10 mg tablet 5 daily for 2 days, then 4 daily for 2 days, then 3 daily for 2 days, the 2 daily for 2 days, the 1 daily for 2 days. 07/06 completed Not Available Not Available Not Available gabapenti n 600 mg tablet TAKE 1 TABLET BY MOUTH THREE TIMES A DAY NEEDED 08/06 completed Not Available Not Available Not Available cetirizin e 10 mg tablet TAKE 1 TABLET BY MOUTH EVERY DAY active Not Available Not Available No t Available azithromy adalberto 250 mg tablet 2 pills po today then one po for 4 days 02/06 completed Not Available Not Available Not Available metoprolo l succinate ER 50 mg tablet,ex tended release 24 hr Take 0.25 tablets every day by oral route. 03/03 completed Not Available Not Available Not Available famotidin e 40 mg tablet TAKE 1 TABLET BY MOUTH EVERY DAY FOR 30 DAYS active Not Available Not Available No t Available prednison e 20 mg tablet TAKE 1 TABLET BY MOUTH EVERY DAY FOR 5 DAYS 07/06 completed Not Available Not Available Not Available Calcium Antacid 300 mg (as calcium carbonate 750 mg) chewable tablet TAKE 2 TABLETS BY MOUTH 2 TIMES A DAY NEEDED FOR DYSPEPSI A active Not Available Not Available No t Available promethaz ine 6.25 mg-codein e 10 mg/5 mL syrup TAKE 5 ML BY MOUTH 4 TIMES A DAY NEEDED 08/18 completed Not Available Not Available Not Available fexofenad ine 180 mg tablet TAKE 1 TABLET BY MOUTH EVERY DAY 07/06 completed Not Available Not Available Not Available Aspir-Low 81 mg tablet,de layed release Take 1 tablet every day by oral route for 30 days. 07/14 completed Not Available Not Available Not Available ciproflox acin 500 mg tablet TWO TIMES DAILY 05/10 completed RECORDED 06/02/20 11 3:49PM BY KATERINE CARREON MD, MEDICATI ON AUTO-ANA CTIVATIO N; Not Available Not Available Not Available sulfameth oxazole 800 mg-trimet hoprim 160 mg tablet BID 03/28 completed RECORDED 05/19/20 09 8:40AM BY MAEGAN QUAN PADipakC, MEDICATI ON AUTO-ANA CTIVATIO N; Not Available Not Available Not Available tramadol 50 mg tablet Take 2 tablets 3 times a day by oral route as needed. 08/05 completed Not Available Not Available Not Available pantopraz ole 20 mg tablet,de layed release TAKE 1 TABLET BY MOUTH EVERY DAY 08/06 completed Not Available Not Available Not Available flaxseed oil 1,000 mg capsule Take 1 capsule every day by oral route. active Not Available Not Available No t Available amoxicill in 875 mg tablet Take 1 tablet twice a day by oral route for 10 days. 04/01 completed Not Available Not Available Not Available ascorbic acid (vitamin C) 500 mg tablet Take 1 tablet every day by oral route. active Not Available Not Available No t Available tamsulosi n 0.4 mg capsule TAKE 1 CAPSULE BY MOUTH EVERY DAY 03/31 completed Not Available Not Available Not Available benzonata te 100 mg capsule TAKE 1 CAPSULE BY MOUTH THREE TIMES A DAY FOR 5 DAYS 01/02 completed Not Available Not Available Not Available doxycycli ne monohydra te 100 mg capsule TAKE 1 CAPSULE TWICE A DAY BY ORAL ROUTE WITH MEAL(S) FOR 7 DAYS. 01/19 completed Not Available Not Available Not Available erythromy adalberto 5 mg/gram (0.5 %) eye ointment APPLY 1 CM RIBBON INTO THE LOWER CONJUNCT IVAL SAC IN THE AFFECTED EYE 3 TIMES A DAY FOR 10 DAYS 08/03 completed Not Available Not Available Not Available flecainid e 50 mg tablet Take 1 tablet every 12 hours by oral route. 12/14 completed Not Available Not Available Not Available ascorbic acid (vitamin C) 500 mg chewable tablet BID, TAKE WITH IRON SULFATE 03/11 completed RECORDED 03/11/20 11 11:08AM BY GEOVANNY BRENNAN MA, OFFICE VISIT; Not Available Not Available Not Available flecainid e 100 mg tablet Take 2 tablets as needed by oral route. 11/07 completed pill in the pocket approach for PAF per Dr. Callejas Not Available Not Available Not Available hydrocodo ne-homatr opine 5 mg-1.5 mg/5 mL oral solution TAKE 5ML BY MOUTH EVERY 6 HOURS FOR 7 DAYS NEEDED FOR COUGH 08/06 completed Not Available Not Available Not Available gabapenti n 300 mg capsule Take 1-2 capsules at bedtime by oral route as needed for insomnia active Not Available Not Available No t Available sertralin e 25 mg tablet 09/04 completed Not Available Not Available Not Available aspirin 81 mg chewable tablet TAKE 1 TABLET BY MOUTH EVERY DAY 08/18 completed Not Available Not Available Not Available cephalexi n 500 mg tablet FOUR TIMES DAILY 03/27 completed RECORDED 03/27/20 09 12:39PM BY JAIME MONTES PA-C, MEDICATI ON AUTO-ANA CTIVATIO N; Not Available Not Available Not Available diltiazem CD 120 mg capsule,e xtended release 24 hr Take 1 capsule every day by oral route. 08/06 completed PRN Not Available Not Available Not Available monteluka st 10 mg tablet TAKE 1 TABLET BY MOUTH EVERY DAY active Not Available Not Available No t Available codeine 10 mg-guaife nesin 100 mg/5 mL oral liquid Take 6 mL every 6 hours by oral route as needed for 5 days. 07/06 completed Not Available Not Available Not Available mupirocin 2 % topical ointment APPLY TO AFFECTED AREA 3 TIMES A DAY 02/23 completed Not Available Not Available Not Available gabapenti n 100 mg capsule TAKE 2 CAPSULES EVERY DAY BY MOUTH DIRECTED active Not Available Not Available No t Available metoprolo l succinate ER 25 mg tablet,ex tended release 24 hr TAKE 1 TABLET BY MOUTH EVERY DAY 12/22 completed Not Available Not Available Not Available lorazepam 1 mg tablet TAKE 1 TABLET BY MOUTH THREE TIMES A DAY NEEDED 03/31 completed Not Available Not Available Not Available methylpre dnisolone 4 mg tablets in a dose pack TAKE 6 TABLETS ON DAY 1 DIRECTED ON PACKAGE AND DECREASE BY 1 TAB EACH DAY FOR A TOTAL OF 6 DAYS 07/06 completed Not Available Not Available Not Available albuterol sulfate HFA 90 mcg/actua tion aerosol inhaler INHALE 2 PUFFS INTO THE LUNGS EVERY 4 HOURS NEEDED FOR 30 DAYS 2023 active Not Available Not Available Not Avai lable diltiazem 30 mg tablet TAKE 1 TABLET BY MOUTH THREE TIMES A DAY 12/26 completed Not Available Not Available Not Available fluticaso ne propionat e 50 mcg/actua tion nasal spray,erum pension USE 1 SPRAY IN EACH NOSTRIL 2 TIMES A DAY NEEDED active Not Available Not Available No t Available sertralin e 50 mg tablet TAKE 1 TABLET BY MOUTH EVERY DAY NEEDED FOR ANXIETY active Not Available Not Available No t Available ipratropi um bromide 21 mcg (0.03 %) nasal spray 08/06 completed Not Available Not Available Not Available naproxen 500 mg tablet Take 1 tablet twice a day by oral route for 15 days. 07/17 completed Not Available Not Available Not Available diazepam 5 mg tablet 10/31 completed Not Available Not Available Not Available amoxicill in 875 mg-potass ium clavulana te 125 mg tablet TAKE 1 TABLET BY MOUTH EVERY 12 HOURS DIRECTED FOR 10 DAYS 09/18 completed Not Available Not Available Not Available albuterol (refill) 90 mcg/actua tion aerosol inhaler Q 4-6 HRS PRN COUGH/WH EEZE 06/02 completed RECORDED 06/02/20 11 3:49PM BY RIKI LOPEZATI ON/ADDEN DUM; Not Available Not Available Not Available diltiazem ER 240 mg tablet,ex tended release 24 hr TAKE 1 TABLET BY MOUTH EVERY DAY FOR 90 DAYS 09/04 completed Not Available Not Available Not Available rosuvasta tin 10 mg tablet Take 1 tablet every day by oral route at bedtime for 90 days. 09/18 completed Not Available Not Available Not Available metoprolo l tartrate 25 mg tablet TAKE 1 TABLET ORALLY ONCE NEEDED FOR PALPITAT IONS 30 DAYS active Not Available Not Available No t Available metoprolo l succinate 25 mg tab, take half tab daily 10/31 completed Not Available Not Available Not Available Guiatuss AT BEDTIME 03/18 completed RECORDED 03/18/20 11 8:50AM BY KATERINE CARREON MD, MEDICATI ON AUTO-ANA CTIVATIO N; Not Available Not Available Not Available multivita min 1 tablet po daily active Not Available Not Available No t Available GlycoLax BID/PRN 05/13 completed RECORDED 05/13/20 10 11:18AM BY CARIDAD KEITH, RIKIATI ON/ADDEN DUM; Not Available Not Available Not Available cholecalc iferol (vitamin D3) 25 mcg (1,000 unit) tablet 1 tablet every day by oral route. active Not Available Not Available No t Available peg 3350-elec trolytes 236 gram-22.7 4 gram-6.74 gram-5.86 gram solution MIX AND TAKE 8 OUNCE BY MOUTH FOLLOW INSTRUCT IONS GIVEN BY DOCTORS OFFICE 11/19 completed Not Available Not Available Not Available Breo Ellipta 200 mcg-25 mcg/dose powder for inhalatio n 08/06 completed Not Available Not Available Not Available Flonase Sensimist 27.5 mcg/actua tion nasal spray,erum pension INSTILL 1 SPRAY EVERY DAY NASALLY AT BEDTIME FOR 30 DAYS active Not Available Not Available No t Available Shingrix (PF) 50 mcg/0.5 mL intramusc ular suspensio n, kit 11/19 completed Not Available Not Available Not Available Flucelvax Quad (PF) 60 mcg (15 mcg x 4)/0.5 mL IM syringe ADM 0.5ML IM UTD 08/18 completed Not Available Not Available Not Available Paxlovid 300 mg (150 mg x 2)-100 mg tablets in a dose pack TAKE DIRECTED IN PACKAGE FOR 5 DAYS 12/14 completed Not Available Not Available Not Available Vitals Date Recorded Body height Body mass index (BMI) Body weight Heart rate Oxygen saturation Oxygen saturation in Arterial blood by Pulse oximetry Body temperature Systolic blood pressure Diastolic blood pressure Provider Name and Address Organization Details Last Updated DateTime 4 175.26 cm 25.5 kg/m2 64727.4 8 g 66 /min 98 % 98 % 97.6 [degF] 123 mm[Hg] 74 mm[Hg] Staci tinoco MA [facility] 4 10:50:32 Date Recorded Body height Body mass index (BMI) Body weight Heart rate Oxygen saturation Oxygen saturation in Arterial blood by Pulse oximetry Body temperature Systolic blood pressure Diastolic blood pressure Provider Name and Address Organization Details Last Updated DateTime 4 175.26 cm 26 kg/m2 96059.6 6 g 58 /min 99 % 99 % 98.3 [degF] 127 mm[Hg] 84 mm[Hg] Maine Edwards LPN [facility] 4 08:54:21 Date Recorded Body height Body mass index (BMI) Body weight Heart rate Oxygen saturation Oxygen saturation in Arterial blood by Pulse oximetry Body temperature Systolic blood pressure Diastolic blood pressure Provider Name and Address Organization Details Last Updated DateTime 5 175.26 cm 26.7 kg/m2 68151.2 2 g 62 /min 99 % 99 % 97.1 [degF] 122 mm[Hg] 78 mm[Hg] Bridgett Ledezma MA [facility] 5 08:44:35 Date Recorded Body height Body mass index (BMI) Body weight Heart rate Oxygen saturation Oxygen saturation in Arterial blood by Pulse oximetry Body temperature Systolic blood pressure Diastolic blood pressure Provider Name and Address Organization Details Last Updated DateTime 5 175.26 cm 26.7 kg/m2 00064.2 2 g 59 /min 99 % 99 % 97.9 [degF] 134 mm[Hg] 78 mm[Hg] Bridgett Ledezma MA [facility] 5 11:39:52 Date Recorded Body height Body mass index (BMI) Body weight Heart rate Oxygen saturation Oxygen saturation in Arterial blood by Pulse oximetry Body temperature Systolic blood pressure Diastolic blood pressure Provider Name and Address Organization Details Last Updated DateTime 5 175.26 cm 27.2 kg/m2 97809 g 69 /min 98 % 98 % 97.9 [degF] 121 mm[Hg] 74 mm[Hg] Staci tinoco MA [facility] 5 12:54:40 Social History Question Answer Notes LastModified by Organizat ion Details LastModified Time Tobacco Smoking Status [facility] 13:53:57 Do You Have An Advance Directive? No Information not available 06/08/2022 Is Blood Transfusion Acceptable In An Emergency? Yes Information not available 07/17/2019 What Is Your Level Of Caffeine Consumption? Moderate 1 Coffee Information not available 08/03/2023 How Much Tobacco Do You Chew? None Information not available 05/08/2015 What Type Of Diet Are You Following? REGULAR Low Fat/low Sodium Information not available 08/03/2023 Which Illicit Or Recreational Drugs Have You Used? None Information not available 05/08/2015 Have There Been Any Changes To Your Family Or Social Situation? No Information not available 06/08/2022 Are There Any Guns Present In Your Home? No Information not available 06/08/2022 Do You Take Precautions To Prevent Distracted Driving? Yes Information not available 05/08/2015 How Often Do You Need To Have Someone Help You When You Read Instructions, Pamphlets, Or Other Written Material From Your Doctor Or Pharmacy? Never Information not available 05/08/2015 Have You Served In The ? No [email or web address] Information not available 05/26/2016 Have You Or Anyone In Your Household Had Any Of The Following Symptoms In The Last 14 Days: Sore Throat, Cough, Chills, Body Aches For Unknown Reasons, Shortness Of Breath For Unknown Reasons, Loss Of Smell, Loss Of Taste, Fever At Or Greater Than 100 Degrees Fahrenheit? No Information not available 03/03/2020 Are You Or Anyone In Your Household A Health Care Provider Or Emergency Responder? No Information not available 03/03/2020 To The Best Of Your Knowledge Have You Been In Close Proximity To Any Individual Who Tested Positive For COVID-19? No [email or web address] Information not available 12/14/2021 What Was The Date Of Your Most Recent Tobacco Screening? 08/06/2024 [email or web address] Information not available 08/06/2024 How Many Children Do You Have? 0 [email or web address] Information not available 12/14/2021 Do You Use Protection During Sex? Always Information not available 08/18/2020 Do You Use Your Seat Belt Or Car Seat Routinely? Yes [email or web address] Information not available 12/14/2021 Are You Sexually Active? No Partner (Sylvester) Information not available 01/20/2024 Do You Have Smoke And Carbon Monoxide Detectors In Your Home? Yes [email or web address] Information not available 12/14/2021 At What Age Did You Start Smoking Tobacco? 0 Information not available 05/08/2015 Are You Passively Exposed To Smoke? No Information not available 05/08/2015 How Much Tobacco Do You Smoke? No Information not available 05/08/2015 Do You Use Sunscreen Routinely? Yes Information not available 05/08/2015 How Many Years Have You Smoked Tobacco? 0 Information not available 05/08/2015 Sex: Male Functional Status Question Answer Note LastModified by Organizat ion Details LastModified Time Do you use any illicit or recreational drugs? No Information not available 06/08/2022 Do you or have you ever used any other forms of tobacco or nicotine? No Information not available 06/08/2022 What is your level of alcohol consumption? Occasional spiked seltzer Information not available 08/03/2023 Do you or have you ever used smokeless tobacco? Never used smokeless tobacco Information not available 11/02/2019 Are you currently employed? Yes Information not available 05/08/2015 Are you able to walk? YESWOREST Information not available 06/08/2022 Are you able to care for yourself? 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 Never used electronic cigarettes Information not available 06/08/2022 What is your exercise level? Moderate cycling, stretching, weight training Information not available 08/03/2023 Mental Status None recorded. Family History Relationship Description Onset Age of this Age Resolved Age Notes LastModified by Organization Details LastModified Time Maternal Grandmother Arthritis [email or web address] Not available 14:35:17 Maternal Grandmother Malignant tumor of breast 92 [email or web address] Not available 07/2016 10:25:59 Mother Obesity [email or web address] Not available 08:55:47 Mother Disorder of thyroid gland 75 [email or web address] Not available 07/2016 10:25:59 Father Type 2 diabetes mellitus Not available 2021 14:51:19 Father Essential hypertension Not available 14:51:19 Father Heart disease [email or web address] Not available 04/19/2018 14:57:34 Father Atrial fibrillation Not available 14:51:19 Father Cerebrovascu lar accident [email or web address] Not available 04/19/2018 14:58:08 Father Malignant neoplasm of urinary bladder 83 Not available 2021 14:51:19 Sister Malignant lymphoma Not available 2021 14:51:19 Medical History Condition Response Other N Gout N Blood Diseases N Kidney Stones N Hyperthyroidism N Breast Cancer N Hypothyroidism N Lung Disease N Depression N COPD N Defects or Inherited Disease N Anesthesia Complications N Headaches/Migraines N Anxiety Disorder N Varicose Veins N Obesity Y Vision or Eye Problems N Arthritis Y Head Injury/Concussion N Infertility N Polyps N Congenital Anomalies N Acid Reflux (GERD) N Cancer N Stroke N ADHD N Endometriosis N High Cholesterol N Liver Disease N Fibromyalgia N Kidney Disease Y Heart Problems Y Ear or Hearing Problems N Hospitalizations N Thyroid Problems N GI Problems N Acne N Eating Disorder N Skin Problems N Anemia N Constipation N Bladder Problems Y Mental Illness N Diabetes N Ovarian Cancer N Blood Transfusions N Seizures/Epilepsy N Tuberculosis N AIDS/HIV N Congestive Heart Failure (CHF) N Eczema N Abuse/Domestic Violence N Diverticulitis N Asthma Y Allergies Y Reflux/GERD N Hepatitis N Pulmonary Embolism N Hypertension N Chicken Pox N Autism Spectrum Disorder (ASD) N Osteoporosis N Immunizations Vaccine Type Date Status Note Provider Nam e and Address Organization Details Recorded Time Influenza, split virus, quadrivalent, preservative 9 completed Not Available [facility] 06/24/2022 15:35:40 Influenza, MDCK, quadrivalent, PF 0 completed Not Available [facility] 06/24/2022 15:35:41 zoster recombinant 1 completed Not Available [facility] 06/24/2022 15:35:40 zoster recombinant 1 completed Not Available [facility] 06/24/2022 15:35:40 Influenza, split virus, quadrivalent, PF 1 completed Not Available [facility] 06/24/2022 15:35:41 COVID-19, mRNA, LNP-S, PF, 30 mcg/0.3 mL dose 1 completed Not Available [facility] 06/24/2022 15:35:40 COVID-19, mRNA, LNP-S, PF, 30 mcg/0.3 mL dose 1 completed Not Available [facility] 06/24/2022 15:35:40 COVID-19, mRNA, LNP-S, PF, 30 mcg/0.3 mL dose 1 completed Not Available [facility] 06/24/2022 15:35:41 COVID-19, mRNA, LNP-S, PF, 30 mcg/0.3 mL dose, jacqueline-sucrose 2 completed Not Available [facility] 06/24/2022 15:35:40 Td (adult), 2 Lf tetanus toxoid, preservative free, adsorbed 8 completed Not Available [facility] 06/24/2022 15:35:41 Influenza, split virus, quadrivalent, PF 8 completed Not Available [facility] 06/24/2022 15:35:40 Influenza, split virus, quadrivalent, PF 7 completed Not Available [facility] 06/24/2022 15:35:41 Influenza, split virus, quadrivalent, PF 6 completed Not Available [facility] 06/24/2022 15:35:41 COVID-19, mRNA, LNP-S, bivalent, PF, 30 mcg/0.3 mL dose 2 completed CARIDAD De Anda, [facility] 08/03/2023 11:17:35 COVID-19, mRNA, LNP-S, bivalent, PF, 30 mcg/0.3 mL dose 3 completed CARIDAD De Anda, [facility] 08/03/2023 11:17:35 RSV, recombinant, protein subunit RSVpreF, adjuvant reconstituted, 0.5 mL, PF 3 completed CARIDAD De Anda, [facility] 08/03/2023 11:18:37 COVID-19, mRNA, LNP-S, PF, jacqueline-sucrose, 30 mcg/0.3 mL 3 completed CARIDAD De Anda, [facility] 08/03/2023 11:18:37 Influenza, split virus, quadrivalent, PF 3 completed Geovanny Bowman MA null, [facility] 08/03/2023 11:18:37 Influenza, MDCK, trivalent, PF 4 completed Staci Vazquez MA null, [facility] 10/30/2024 12:54:58 COVID-19, mRNA, LNP-S, PF, jacqueline-sucrose, 30 mcg/0.3 mL 5 completed Staci Vazquez MA null, [facility] 10/30/2024 12:54:57 Pneumococcal conjugate PCV20, polysaccharide OAF155 conjugate, adjuvant, PF 5 completed Radha Lugo null, [facility] 08/27/2024 10:02:30 Influenza, split virus, quadrivalent, PF 2 completed Perez Poon MD [address], [address], [facility] [place] 06/01/2022 17:43:53 Hep B, adult 9 completed Not Available [facility] 06/24/2022 15:35:40 Hep B, adult 9 completed Not Available [facility] 06/24/2022 15:35:40 Hep B, adult 0 completed Not Available [facility] 06/24/2022 15:35:40 Tdap 8 completed Not Available [facility] 06/24/2022 15:35:41 Past Encounters Encounter ID Performer Location Encounter Start Date Encounter Closed Date Diagnosis/Indication Diagnosis SNOMED-CT Code Diagnosis ICD10 Code Diagnosis Note [id number] [facility] [address] [facility] [place] [address] 11/17/2006 00:00:00 [id number] [facility] [address] [facility] [place] [address] 12/20/2006 00:00:00 [id number] [facility] [address] [facility], [address] [place] [address] 12/20/2006 00:00:[address] [id number] [address] [address] [place] [address] 12/20/2006 00:00:00 [id number] auto[facility] erce [address] [place] [address] 07/25/2007 00:00:00 [id number] [facility] er[facility] [address] [place] [address] 01/25/2008 00:00:00 [id number] [facility] er[facility] [address] [place] [address] 01/25/2008 00:00:00 [id number] [facility] erce [address] [facility] [address],[place] [address] [place] [address] 09/07/2006 00:00:00 [id number] [facility] erce [address] [facility],[place] [address] [place] [address] 09/07/2006 00:00:00 [id number] [facility] erce [address] [facility],[address] [place] [address] 09/07/2006 00:00:00 [id number] [facility] er[facility] [address] [facility] [address],[place] [address] [place] [address] 04/03/2008 00:00:00 [id number] [facility] erce [address] [facility],[address] [place] [address] [place] [address] 04/03/2008 00:00:00 [id number] auto[facility] erce [address] [facility],[address] [place] [address] 04/03/2008 00:00:00 [id number] auto[facility] erce [address] [facility] [address],[place] [address] [place] [address] 04/03/2008 00:00:00 [id number] [facility] erce [address] [facility],[address] [place] [address] 09/16/2008 00:00:00 [id number] auto[facility] erce [address] [place] [address] 09/16/2008 00:00:00 [id number] [facility] erce [address] [facility] [address] [place] [address] [place] [address] 03/20/2009 00:00:00 [id number] [facility] erce [address] [facility],[address] [place] [address] 03/20/2009 00:00:00 [id number] [facility] er[facility] [address] [facility] [address] [place] [address] [place] [address] 03/20/2009 00:00:00 [id number] autoEComm erce [address] [facility],[address] [place] [address] 03/21/2009 00:00:00 [id number] auto[facility] erce [address] [facility],[address] [place] [address] 03/21/2009 00:00:00 [id number] auto[facility]Comm erce [address] [facility],[address] [place] [address] 03/21/2009 00:00:00 [id number] [facility] erce [address] [facility],[address] [place] [address] 05/19/2009 00:00:00 [id number] auto[facility] erce [address] [facility],[address] [place] [address] 05/19/2009 00:00:00 [id number] auto[facility] erce [address] [facility],[address] [place] [address] 04/15/2010 00:00:00 [id number] auto[facility] erce [address] [facility],[address] [place] [address] [place] [address] 04/15/2010 00:00:00 [id number] auto[facility]Comm erce [address] [facility],[address] [place] [address] 07/07/2010 00:00:00 [id number] auto[facility] erce [address] [facility],[address] [place] [address] 07/07/2010 00:00:00 [id number] auto[facility] erce [address] [place] [address] 07/07/2010 00:00:00 [id number] [facility] erce [address] [place] [address] 07/20/2010 00:00:00 [id number] auto[facility] erce [address] [place] [address] 07/20/2010 00:00:00 [id number] auto[facility] erce [address] [place] [address] 02/17/2011 00:00:00 [id number] auto[facility] erce [address] [place] [address] 02/17/2011 00:00:00 [id number] auto[facility] erce [address] [facility] [address],[place] [address] [place] [address] 02/17/2011 00:00:00 [id number] auto[facility]Comm erce [address] [facility] [address],[place] [address] [place] [address] 03/11/2011 00:00:00 [id number] auto[facility]Comm erce [address] [facility] [address],[place] [address] [place] [address] 04/30/2011 00:00:00 [id number] auto[facility]Comm erce [address] [facility] [address] [place] [address] [place] [address] 04/30/2011 00:00:00 [id number] autoEComm erce [address] [place] [address] 04/30/2011 00:00:00 [id number] autoEComm erce [address] [place] [address] [place] [address] 04/30/2011 00:00:00 [id number] auto[facility]Comm erce [address] [facility] [address] [place] [address] [place] [address] 11/09/2011 00:00:00 [id number] autoEComm erce [address] [place] [address] [place] [address] 11/09/2011 00:00:00 [id number] auto[facility] erce [address] [place] [address] [place] [address] 11/09/2011 00:00:00 [id number] auto[facility] erce [address] [place] [address] [place] [address] 11/09/2011 00:00:00 [id number] auto[facility] erce [address] [place] [address] [place] [address] 12/28/2012 00:00:00 [id number] auto[facility]Comm erce [address],[place] [address] [place] [address] 12/28/2012 00:00:00 [id number] auto[facility]Comm erce [address] [facility] [address],[place] [address] [place] [address] 12/28/2012 00:00:00 [id number] autoEComm erce [address] [facility] [address],[place] [address] [place] [address] 12/28/2012 00:00:00 [id number] autoEComm erce [address] [facility] [address],[place] [address] [place] [address] 03/26/2013 00:00:00 [id number] auto[facility]Comm erce [address] [facility] [address],[place] [address] [place] [address] 03/26/2013 00:00:00 [id number] auto[facility]Comm erce [address] [facility] [address] [place] [address] [place] [address] 01/15/2014 00:00:00 [id number] autoEComm erce [address] [facility],[address] [place] [address] [place] [address] 01/15/2014 00:00:00 [id number] autoEComm erce [address] [facility],[address] [place] [address] [place] [address] 01/15/2014 00:00:00 [id number] Nash Noel MD Main Office [address] [place] [address] 11/23/2014 10:00:12 11/23/2014 10:37:38 Allergic rhinitis 74070632 Cough 71246301 I suspec t that this is most likely allergy related as pt has not been taking usual regimen and Spring allergens are presenting . Pt will resume previous meds and inb/worse or fever develops he will start an abx. [id number] Landon Burt MD Main Office [address] [address] [place] [address] 05/08/2015 13:21:51 05/08/2015 14:55:53 Adult health examination 247216404 Allergic rhinitis 07000520 Anxiety state 326708762 Hyperlipidemia 62196373 Fatigue 77783073 [id number] Landon Burt MD Main Office [address] [address] [place] [address] 07/14/2015 09:48:17 07/14/2015 10:40:24 Low back pain 106751690 M54.5 [id number] Andrew Adamson PA-C Main Office [address] [address] [place] [address] 03/17/2016 13:21:46 03/17/2016 14:09:26 Cough 39983759 R05 has persisted x 3 weeks despite abx -- check cxr to r/o walking pna Complainin g of - postnasal drip 415061561 R09.82 Allergic rhinitis 025687 04 J30.9 [id number] Landon Burt MD Main Office [address] [address] [place] [address] 04/01/2016 15:24:22 04/01/2016 16:25:52 Palpitations 09719069 R00.2 Hyperlipidemia 27759597 E78.0 Fatigue 51680036 R53.83 [id number] Landon Burt MD Main Office [address] [address] [place] [address] 04/02/2016 16:12:12 04/02/2016 16:29:38 [id number] Landon Burt MD Main Office [address] [address] [place] [address] 05/26/2016 10:16:56 05/26/2016 11:20:21 Adult health examination 769788141 Z00.00 Needs infl uenza immunization 854468511 Z23 Allergic rhinitis 617367 04 J30.9 Body mass index 25-29 - overweight 100301569 E66.3 [id number] Andrew Adamson PA-C Main Office [address] [address] [place] [address] 06/22/2016 14:52:31 06/22/2016 16:20:43 Dysuria 39357614 R30.0 h/o prostatiti s >7 yrs ago Suleman hematuria 24170417 5 R31.0 25 minute office visit with greater than 50% of the visit face-to-fa ce with the patient and/or family providing counseling and/or coordinati on of care. [id number] Landon Burt MD Main Office [address] [address] [place] [address] 05/27/2017 12:50:34 05/27/2017 13:59:17 Adult health examination 490358221 Z00.00 Needs infl uenza immunization 998673642 Z23 Increased frequency of urination 653580031 R35.0 Chronic ki dney disease stage 2 848451247 N18.[address] Riojas for renal [id number] Marina booth MD Main Office [address] [address] [place] [address] 07/02/2017 09:01:57 07/02/2017 09:54:47 Sinusitis 19037506 J32.9 with pnd and productive disruptive cough, 4 weeks of illness Cough 00590056 R05 keeping him up, tx below [id number] Andrew Adamson PA-C Main Office [address] [place] [address] 02/06/2018 13:06:20 02/06/2018 14:03:24 Lightheadedness 780439918 R42 new, so most likely d/t orthostasi s from [facility] - no evidence of vertigo - see above Paroxysmal atrial fibrillation 802885759 I48.0 p.afib - new dx from recent hospitaliz ation, now on baby asa and BB - f/u c card as dir - 7.10.18 see below - advised pt to cut dose in half - 25mg/qd - also advised pt okay to take second half of med if go into afib advised pt to stay hydrated and cont to avoid caffeine and stimulants pt deferred 25mg tab - states will get from card * will fwd note to card * [id number] Landon Burt MD Main Office [address] [facility] [address] [place] [address] 07/14/2018 10:31:34 07/14/2018 12:17:23 Hepatitis C screening 381687389 Z11.59 Adult heal th examination 840366380 Z00.00 Needs infl uenza immunization 484099362 Z23 Requires a tetanus booster 975115751 Z23 Paroxysmal atrial fibrillation 257948286 I48.0 Not on anticoagul ation. followed by cardiology Fatigue 95086581 R53.83 Low back pain 462685541 M54.5 Benign pro static hyperplasia 973411047 N40.0 stable. followed by [id number] Landon Burt MD Main Office [address] [address] [place] [address] 04/11/2019 14:51:58 04/11/2019 15:25:25 Strain of neck muscle 140021182 S16.1XXA SCM pain following exercising and lifting snowblower . Start NSAID as directed and muscle relaxants at HS. MOist heat applicatio ns twice daily and massage. [id number] Landon Burt MD Main Office [address] [address] [place] [address] 07/17/2019 10:41:36 07/17/2019 12:02:59 Adult health examination 350691807 Z00.00 vaccines are UTD Anxiety state 749714433 F41.1 Lorazepam PRN> Blood in urine 47155723 R31.9 U/A with large hematuria. Will recommend to see urology in f/u on this. Screening for malignant neoplasm of colon 697752924 Z12.11 Benign pro static hyperplasia 959752486 N40.0 stable Paroxysmal atrial fibrillation 927746582 I48.0 stable. continue f/u w/ cardiology Chronic ki dney disease stage 2 340755584 N18.2 F/u with Dr. Riojas. Repeat BMP in September. Hypertriglyceridemia 302 540809 E78.1 repeat fasting lipids. Obstructiv e sleep apnea syndrome 88366777 G47.33 Not using CPAP due to weight loss. Screening for malignant neoplasm of prostate 580827003 Z12.5 [id number] Jack Lira MD Main Office [address] [facility] [address] [place] [address] 11/01/2019 10:34:18 11/01/2019 14:52:58 Exposure to viral disease 6110073513 77097 Z20.828 No current worrisome symptoms but we reviewed reasons for going to the ER. Anxiety state 783509681 F41.1 Allergic rhinitis 966788 04 J30.9 Continue current mgmt. Cough 83757581 R05 Secondary to allergies/ PND. Continue with codeine for cough [id number] Landon Burt MD Main Office [address] [address] [place] [address] 03/03/2020 09:02:20 03/03/2020 10:31:24 Screening for malignant neoplasm of colon 487664548 Z12.11 Allergic rhinitis 754907 04 J30.9 Tinnitus of right ear 48 60520050 108 H93.11 Chronic cough 01589856 R 05 May be related to cough-vari ant asthma on metoprolol for PAF. Paroxysmal atrial fibrillation 243437454 I48.0 Not on anticoagul ation. followed by cardiology Obstructiv e sleep apnea syndrome 71310841 G47.33 [id number] Landon Brut MD Main Office [address] [address] [place] [address] 08/18/2020 15:06:28 08/21/2020 15:43:24 Adult health examination 029843580 Z00.00 Low back pain 743003577 M54.5 Anxiety state 235721774 F41.1 Body mass index 25-29 - overweight 877568319 E66.3 Chronic ki dney disease stage 2 [address]9539599 [address]18[address] Riojas for renal Varicella vaccination 68 160771 Z23 Paroxysmal atrial fibrillation 500537641 I48.0 Not on anticoagul ation. followed by cardiology [id number] Jack Lira MD [facility] [address] [facility] [address] [place] [address] 11/19/2021 10:06:57 11/20/2021 10:03:55 COVID-19 605589611 U07.1 [id number] Perez Poon MD Main Office [address] [facility] [address] [place] [address] 12/14/2021 08:55:30 12/14/2021 09:44:41 Adult health examination 942304075 Z00.00 Patient was counseled on healthy diet, exercise and nutrition due to Body mass index is 26.5 kg/m? ? ?. Last PSADate: 08/04/2020 Result: 0.7Plan: had share decision, patient opted to screen. Last Colonoscop y:Date: 05/05/21Res ult: 1, 5mm polypsPlan : Per GI repeat 5yrs Vaccines:T d: 07/14/18h ingrix: 06/27/21, 01/19/21PCV2 0: Not dueInfluen za: 05/26/21Co vid: 11/03/20, 11/24/20, 05/26/21, plans to get 4th dose. Routine labs today Immunizati on status reviewed. Will screen based on risk factors. Regular dental and ophtho care advised as well as seat belt and sunscreen use. Distracted driving discussed. Medication reconciled . Paroxysmal atrial fibrillation 924496813 I48.0 Nocturia 477030900 R35.1 Fatigue 57171112 R53.83 Hyperlipidemia 74087538 E78.5 Anemia due to unknown mechanism 47048437 D64.9 Acute folliculitis 85649 7007 L73.9 [id number] Nash Noel MD Telehealt [facility] [address] [facility] [address] [place] [address] 02/23/2022 10:46:59 02/24/2022 13:57:19 Right side sciatica 0622160747 51276 M54.31 cont gbn as dir, low risk of abuse c prn tramadol (last fillled 4), cont hep, alt. ice/heat --- f/u c pcp in 2 weeks - if no sig improvemen t then consider re-eval c pssp [id number] Perez Poon MD Main Office [address] [facility] [address] [place] [address] 06/01/2022 13:17:21 06/01/2022 14:26:10 Nocturia 033651280 R35.1 Will recheck PSA get UA and a1c, notes tingling to tip of penis at times thus will check GC/CT as also having joint pain in knees although unlikely GC arthropath y. Microscopic hematuria 19 2635921 R31.29 Hx of hematuria will get sonogram bladder and kidney will also ask to eval for hernia as possible palpable on exam. Pain of bi lateral knee joints 4158693854 58832 M25.561 M25.562 Given time limitation , he was advised I will start with XR first.Sinc e he is having blood work done will check for gout CBC/ESR/CR P ordered, I suspect this is related to OA. Conservati ve therapy discussed. Needs infl uenza immunization 397982080 Z23 [id number] Perez Poon MD Main Office [address] [place] [address] 06/08/2022 14:50:54 06/08/2022 15:49:29 Pain of bilateral knee joints 8699400832 99483 M25.561 M25.562 He plans to follow with ortho, list of tx option discussed. Allergic rhinitis 728052 04 J30.9 budesonide has been out of stock nationwide Nocturia 017178378 R35.1 Finding negative will do a trial of Fosamax, risk of orthostasi s disussed.B ladder and kidney sono pending if normal and sx persist will refer to urology. [id number] SHREE MARTINEZ MD Main Office [address] [place] [address] 03/31/2023 08:50:42 03/31/2023 09:11:08 Hordeolum externum of upper eyelid of left eye 0380220016 08109 H00.014 - c/w warm compresses to eye for 15 minutes qid- started erythromyc in ointment 3 times daily for 10 days- RTC if no improvemen t [id number] Perez oPon MD Main Office [address] [place] [address] 08/03/2023 11:01:29 08/03/2023 12:04:59 Chronic kidney disease stage 2 580373328 N18.2 Follows renal. Adult [facility] th examination 718254030 Z00.00 Patient was counseled on healthy diet, exercise and nutrition due to Body mass index is 26.9 kg/m? ? ?. Last PSADate: 06/01/22Re sult: 0.6Plan: had share decision, patient opted to screen. Last Colonoscop y:Date: 05/05/21Res ult: 1, 5mm polypsPlan : Per GI repeat 5yrs Vaccines:T d: 07/14/18Zo ster rec: 06/27/21, 01/19/21PCV2 0: script given, given afib.Influ katey: 05/21/23Cov id: 11/03/20, 11/24/20, 05/26/21, 01/01/22, 06/18/22, 12/31/22, 05/21/23RSV : 05/21/23 Routine labs today Immunizati on status reviewed. Will screen based on risk factors. Regular dental and ophtho care advised as well as seat belt and sunscreen use. Distracted driving discussed. Medication reconciled . Fatigue 20292007 R53.83 Z00.00 Hyperlipidemia 20870321 E78.5 Z00.00 Nocturia 879450238 R35.1 Paroxysmal atrial fibrillation 815059927 I48.0 [id number] Sc: 0Lost to follow up with cards, will refer.Enco uraged sleep med follow up, referral placed. Obstructiv e sleep apnea syndrome 52984126 G47.33 Allergic rhinitis 093115 04 J30.9 Administra tion of pneumococcal vaccine 98143091 Z23 [id number] Jack Lira MD Main Office [address] [place], [place] [address] 12/21/2023 09:41:42 12/21/2023 10:33:36 Paroxysmal atrial fibrillation 205591685 I48.0 reviewed hospital documentat ion-was evaluated at [facility] for paroxysmal atrial fibrillati on and chest discomfort ; cardiac work up completed; and discharged on metoprolol ER 25mg QD-pt does not tolerate side effects of headaches and cough-note s episodes of palpitatio ns are triggered by his anxiety and panic attacks-horan s appt with cardiology 12/21-was referred to sleep medicine 07/2023 for sleep apnea; pt has not attended. Was dx with sleep apnea previously and trialled CPAP; did not tolerate and is not interested in further interventi on-will have pt stop metoprolol and start diltiazem Allergic rhinitis 422980 04 J30.9 refill per pt request Anxiety 63671972 F41.9 GAD7 score of 17-signifi cant stress and anxiety related to work load; pt plans to seek FMLA-x2-3 months of increased anxiety related to work-in office was tearful and anxious; overwhelme d with responsibi lities related to work-has a strong support system at home-agree d to start an SSRI, will have pt start sertraline 50mg QD-will refill lorazepam for 12 days prn-discus sed risks, benefits, side effects, and medication interactio ns-f/u in 4 weeks [id number] Jack Lira MD Main Office [address] [facility] [address] [facility] [place] [address] 12/23/2023 10:31:31 12/23/2023 11:05:37 Anxiety 19487697 F41.9 is taking time off from work to improve mental health-req uests a referral to psychiatry -recently started sertraline 50mg Obstructiv e sleep apnea syndrome 27134273 G47.33 referral was placed 07/2023, pt plans to call to schedule appt and see other interventi ons as CPAP was not tolerated in the past-MANINDER likely also contributi ng to a fib Cough 93944418 R05.9 dry cough that resolved after stopping metoprolol -no URI symptoms [id number] Perez Poon MD Main Office [address] [facility] 207 [place] [address] 12/27/2023 10:15:42 12/27/2023 11:11:58 Persistent cough 946970418 R05.3 CT Chest angion done 12/15/2023 , result reassuring will hold imaging. Allergic rhinitis 196484 04 J30.9 Fatigue 32751552 R53.83 Z00.00 Hyperlipidemia 45998358 E78.5 Z00.00 Nocturia 846078805 R35.1 Paroxysmal atrial fibrillation 612280339 I48.0 [id number] Sc: 0Cont. Cardizem, echo with cards.Cont . cards follow up. [id number] Perez Poon MD Main Office [address] [facility] [address] [facility] [place] [address] 01/03/2024 11:01:58 01/03/2024 11:49:17 Persistent cough 381071549 R05.3 Allergic rhinitis 688401 04 J30.9 Acute sinusitis 97429213 J01.90 Hyperlipidemia 78200496 E78.5 Z00.00 [id number] Perez Poon MD Main Office [address] [facility] [address] [facility] [place] [address] 01/20/2024 15:24:01 02/02/2024 08:23:56 Persistent cough 514894457 R05.3 Allergic rhinitis 299991 04 J30.9 [id number] Perez Poon MD Main Office [address] [address] [facility] [place] [address] 02/03/2024 15:29:12 02/03/2024 15:58:09 Persistent cough 904596123 R05.3 Allergic rhinitis 479381 04 J30.9 [id number] Jack Lira MD Main Office [address] [place], [place] [address] 02/15/2024 15:43:11 02/15/2024 16:35:32 Cough 01828556 R05.9 Unclear etiology. Doubt infectious since it has been a problem for 10 weeks w/o much improvemen t. He has been treated for allergies and has seen an pump oiler but the cough persists. He had PFTs with a methacholi ne challenge that was negative for asthma. He has seen his cardiologi st who feels that this is not related to his afib and he has a pulmonolog ist appointmen t next week (02/21/24). He has been helped in the past with a medrol dose-pack so we will do this before his pulmonary appointmen t. Another round of abx is not indicated since if he had both the medrol pack and the abx it would not be clear what causes any improvemen t. [id number] Jack Lira MD Main Office [address] [place], [place] [address] 07/06/2024 10:44:16 07/06/2024 11:05:51 Dysfunction of bilateral eustachian tubes 0967803731 644363 H69.93 re-start flonase daily x at least 10 days, re-start ipratropiu m nasal spray daily. may take a plain sudafed as needed, not for more than 3-4 days. Allergic rhinitis 399328 04 J30.9 he prefers cetirizine to adarsh, will send script. [id number] Perez Poon MD Main Office [address] [facility] [address] [place] [address] 08/06/2024 08:46:02 08/06/2024 09:29:16 Interstitial lung disease 035502536 J84.9 Adult heal th examination 978463386 Z00.00 Patient was counseled on healthy diet, exercise and nutrition due to Body mass index is 26 kg/m? ? ?. Last PSADate: 12/29/23Res ult: 1Plan: had share decision, patient opted to screen. Last Colonoscop y:Date: 05/05/21Res ult: 1, 5mm polypsPlan : Per GI repeat 5yrs Vaccines:T d: 07/14/18Zo ster rec: 06/27/21, 01/19/21PCV2 0: script given, given afib and hx ILDInfluen za: 08/06/24Co vid: Encourage updated vaccineRSV : 05/21/23 Routine labs today Immunizati on status reviewed. Will screen based on risk factors. Regular dental and ophtho care advised as well as seat belt and sunscreen use. Distracted driving discussed. Medication reconciled . Chronic ki dney disease stage 2 197127260 N18.2 Follows renal. Paroxysmal atrial fibrillation 231225876 I48.0 [id number] Sc: 0Lost to follow up with cards, will refer.Enco uraged sleep med follow up, referral placed. Administra tion of pneumococcal vaccine 68342364 Z23 Needs infl uenza immunization 864395893 Z23 19 YEARS AND OLDER ONLY Anxiety state 467425935 F41.1 sx are better, wants to back off meds. Will do fermin, he will take 25mg for 6 weeks then stop and if sx return he will call. Impaired f asting glycemia 114255966 R73.01 Was on prednisone will check a1c and lipid. Hypertriglyceridemia 302 463637 E78.1 Body mass index 25-29 - overweight 792457534 E66.3 Z68.25 Diet and exercise changes discussed. Overweight 166492738 E66 .3 [id number] Jack Lira MD Main Office [address] [address] [place] [address] 09/04/2024 08:35:27 09/04/2024 09:05:02 Acute right otitis media 736565756 H66.91 Right OM, hydration, tylenol as needed for pain. Augmentin BID with food x full 10 days. Eat yogurt daily or take a probiotic. Pain of mu ltiple joints 20465569 M25.50 requests refills, has been helpful at night Cervical lymphadenopathy 678689141 R59.0 Patient notes he has had right sided neck swelling for 2ish months, worse in the last 6 weeks, he was on prednisone for 4 months and thought this may be a effects, also having muscle aches and joint pain. Will tx with augmentin for OM, will order labs. [id number] Jack Lira MD Main Office [address] [place] [address] 09/18/2024 11:30:05 09/18/2024 12:09:10 Muscle pain 37811969 M79.10 UNclear etiolgy. May be related to a yet undiagnose d autoimmune d/o. Mass of neck 364900944 R 22.1 Will get an US for further evaluation [id number] Jack Lira MD Main Office [address] [facility] [address] [place] [address] 10/30/2024 12:32:12 10/30/2024 13:22:41 Pain of multiple joints 10658991 M25.50 Jaw pain 258113816 R68.8 4 Neck pain 57438389 M54.2 Temporoman dibular jlkun-kosk-gsllvvhcpp n syndrome 978442915 M26.629 Health Concerns Section Related Observation LastModified by Organization Detai ls LastModified Time None Recorded Concern Status LastModified by Organization Details LastModified Time None Recorded Advance Directives Directive N: Payers Encounter Date Sequence Insurance Name Policy Number Policy Walters Covered Member ID Walters Member ID Guarantor Name 07/06/2024 1 [facility] [id number] Zenon Navarrete [id number] Zenon Navarrete 08/06/2024 1 [facility] [id number] Zenon Navarrete [id number] 1 [id number] Zenon Navarrete 09/04/2024 1 [facility] [id number] Zenon Navarrete [id number] 1 [id number] Zenon Navarrete 09/18/2024 1 [facility] [id number] Zenon Navarrete [id number] 1 [id number] Zenon Navarrete 10/30/2024 1 [facility] [id number] Zenon Navarrete [id number] Zenon Navarrete Notes Date Note Type Note Provider Name and Address Organization Details Recorded Time 4 text/html Generic HPI TemplateReported bypatient.Notes:Patient notes he is just coming over long prednsione taper over 3 months, took last dose today. 2 weeks ago started with left ear pressure, dizziness- feeling off balance- changing position, no ear pain, feels like a squeezing sensation. Does notice hearing loss on that side as well. Sarah Poe, [facility] [address] [address], [place], [address], [facility] 07/06/2024 11:21:31 4 text/html Atrial FibrillationReported bypatient.Notes:Stable, no sx. Low CHADS-VASC score, so not on anticoagulation.Has not seen Cards since 2019. Has apt.Obstructive Sleep Apnea F/UReported bypatient.Notes:Had sleep test for MANINDER after he was diagnosis with PAF. Noted to have AHI of 19 and recommended that he have CPAP. Not presently on CPAP as he could not tolerate. Here for PE, Reviewed chronic medications and medical problems. Discussed screening guidelines as well as goals for fitness and weight management. Self DC cardizem, to follow cardiology to discuss further fells like he is afib free. TESSIE Henning, [facility] 08/06/2024 09:53:23 5 text/html Generic HPI TemplateReported bypatient.Notes:Right jaw and ear pain x 2 months, has been on pred 40mg x 4 months, weaned off slowly but notes has had muscle aches, thighs and biceps- worse in the last6 weeks. plus swollen g;and on right neck. No fever, chills, + joint pain. + headaches. Did have bloody nasal discharge- stopped flonase, still has bloody phlegm and nasal discharge, cough slightly at night. No sinus pain/ pressure.He did got to dentist last week to get checked due to pain- not dental. Sarah Poe [facility] [address] [address], [place], [address], [facility] 09/04/2024 10:32:06 5 text/html He feels a swelling at the right side of his neck near his jaw and it is most noticeable when he is opening his mouth wide. He was seen by his dentist and no pathology was found. He denies f/c and does not have trouble swallowing. In addition he has muscle pains in his thighs and upper arms when he is exerting himself. He feels this especially when he is lifting a heavy object like his dog. He is believed to have an autoimmune disorder and was followed by pulmonary because of mediastinal nodes. He had been on prednisone for months and improved but stopped the prednisone about 3 months ago. No dx was ever made. He has 2 sisters with lymphoma and he had a normal CBC a couple of weeks ago. No known fhx of autoimmune d/o. Jack Lira MD [address] [address], [place], [address], [facility] 09/18/2024 13:00:07 5 text/html He continues to have multiple pains involving his arms, legs, neck and jaw. He was seen by his dentist and there is no evidence of grinding or clenching. His CK total was checked last month and was normal. His sed rate was also normal. In fact his w/u over the last few months has been unrevealing. This has included an US of his neck because he thought he could feel a mass. He tried gabapentin which helps with sleep but not with the pain. Jack Lira MD [address], [place], [address], [facility] 10/31/2024 18:03:34
== END 2024-12-24 07:17 | disposition home or self-care (01) ==
LOC: HO.CT 07:16
PROVIDERS: PCP Family Medicine; Visit Provider Nurse Practitioner Family
DX: J84.9 Interstitial pulmonary disease, unspecified (principal); R05.9 Cough, unspecified
CPT/HCPCS: 71250

== ENCOUNTER → 2024-12-24 07:18 | Outpatient (BNV) | payer OTHER, SELFPAY | PROVIDERS: PCP Family Medicine; Visit Provider Radiology Diagnostic Radiology | DX: R91.8 Other nonspecific abnormal finding of lung field (principal) | CPT/HCPCS: 71250 ==

== ENCOUNTER 2024-12-24 07:50 | Outpatient (REF) | payer OTHER, SELFPAY ==
[2024-12-25 08:08] LABS: CRP High Sensitivity 2.6 mg/L
[2024-12-26 15:39] LABS: Anti Nuclear Antibody Screen NEGATIVE (NEGATIVE)
[2024-12-31 16:14] LABS: Asperg fumigatus Precip Abs NEGATIVE (NEGATIVE); Micropoly faeni Abs NEGATIVE (NEGATIVE); Pigeon serum Abs NEGATIVE (NEGATIVE); Saccharo pora viridis Abs NEGATIVE (NEGATIVE); Thermo candidus Abs NEGATIVE (NEGATIVE); Thermoa vulgaris #1 NEGATIVE (NEGATIVE)
== END 2024-12-24 07:51 | disposition home or self-care (01) ==
LOC: HO.WFDLDS 07:50
PROVIDERS: Visit Provider Nurse Practitioner Family
DX: M25.50 Pain in unspecified joint (principal); J84.9 Interstitial pulmonary disease, unspecified; R05.9 Cough, unspecified
CPT/HCPCS: 36415; 86038; 86141; 86331; 86606; 86609

== ENCOUNTER 2025-01-25 14:14 | Outpatient (AMB) | payer OTHER, SELFPAY ==
--- OUTSIDE RECORDS SUMMARY | 2025-01-25 14:16 | XMS_ITS | Clinical Summary ---
Author Organization [facility] Facility Address [address] [address] Care Team Providers Care Grave Digger Name Role Phone Candice Salas MD Primary Care Provider [phone] Allergies No known active allergies Medications aspirin [...] this topic Insurance [employer] Care Teams Grave Digger Relationship Specialty Start Date End Date Candice Salas MD [address] [address] PCP - General Family Medicine 06/24/22
--- NOTE | 2025-01-25 14:18 | A.OFFVIS_ITS ---
Vital Signs 01/25/25 14:20 Height 5 ft 9 in Weight 184 lb 8 oz BMI 27.2 BP 118/76 Blood Pressure Location Lt brachial Position Sitting Pulse 61 Pulse Source Pulse Oximeter Pulse Oximetry (%) 97 Oxygen Delivery Method Room Air Intake Visit Reasons: Cough/ CT FU Allergies No Known Allergies Allergy (Verified 01/25/25 14:21) HPI HPI Cough/ CT FU: Details: Zenon is a pleasant 64 year old male, never smoker, with underlying atrial fibrillation, MANINDER, BPH, CKDII and environmental allergies. He was initialled referred after persistent dry cough developed [address] revealed likely evolving ILD with multiple areas of ggo. Initially trialed a short course of steroids for inflammatory process however once tapered/completed his symptoms recurred that were interfering with his daily activities. He has since completed a three month course of prednisone with resolution of symptoms. Repeat chest CT unremarkable from 05/2024. At the last visit, he reported cough had returned however over the last few months patient reports significant improvement in symptoms. He reports intermittent cough in the AM with associated post nasal drip and increased ear fullness. He notes previously receiving allergen immunotherapy as a child. He has been using benadryl QHS and Flonase intermittently. He has increased his activity level and denies any dyspnea with exertion or wheezing. He denies any visits to urgent care or hospitalizations related to respiratory distress. Today he presents to review chest ct results. [facility] Social History Patient Tobacco Use Status: Never used Tobacco Review of Systems Const Denies chills, Denies excessive sweating, Denies fever(s), Denies headache(s) and Denies night sweats Eyes Denies dry eyes and Denies irritation ENT Reports Normal hearing present, Denies headache(s) and Denies sore throat Card Denies chest pain, Denies chest pain at rest, Denies chest pain with activity, Denies claudication, Denies leg edema, Denies dyspnea, Denies dyspnea on exertion, Denies orthopnea and Denies paroxysmal nocturnal dyspnea Resp Denies chest congestion, Denies excessive phlegm production, Denies pain on inspiration, Denies pain with cough, Denies dyspnea, Denies dyspnea on exertion, Denies stridor and Denies wheezing Musc Denies myalgias Neuro Reports Normal hearing present and Denies headache(s) Endo Denies excessive sweating Fili/Lymph Denies lymphadenopathy Aller/Immun Denies wheezing Physical Exam Vital Signs: Last Vital Signs Pulse 61 01/25/25 14:20 BP 118/76 01/25/25 14:20 Pulse Ox 97 01/25/25 14:20 Oxygen Delivery Method Room Air 01/25/25 14:20 BMI result Body Mass Index 27.2 Const General: cooperative, healthy appearing, comfortable, no acute distress, well developed and alert Orientation/consciousness: patient oriented x3 Limitations: no limitations HEENT Head: Yes normal to inspection, Yes normocephalic and Yes atraumatic Ears: hearing grossly normal bilaterally and external ears normal Eyes General: appearance normal, both eyes and all related structures Eyelids: Yes eyelids normal Sclerae: sclerae normal EOM: EOMs intact bilaterally Neck Neck: Yes normal visual inspection and Yes no lymphadenopathy Lymphatic: no lymphadenopathy noted Chest Chest palpation & inspection: normal inspection of the chest Resp Effort & Inspection: normal respiratory effort, able to speak in complete sentences, no audible wheezes, no cough, no stridor, not tachypneic, no tripod positioning and no use of accessory muscles Auscultation: clear to auscultation bilaterally Cardio Jugular venous distension: no JVD Rate: regular rate Rhythm: regular rhythm Skin Other: warm, dry General skin exam: no rashes or lesions noted Neuro General: patient oriented x3 Cranial nerves: Yes Normal hearing present Cognition (Neuro): normal cognition Gait exam (Neuro): Normal gait present Extrem General: Yes normal to inspection, Yes capillary refill normal, Yes no clubbing, cyanosis or edema and Yes no pedal edema Psych Appearance: grossly normal and well kempt Speech and movement: Normal speech and movement present and Clear speech present Affect: normal affect Attitude: cooperative Thought process: Normal thought process present Thought content: Normal thought content present Insight: Good insight present (Psych) Judgement: Good judgement present (Psych) Results Reviewed Results Reviewed: [address] [address] [address] Scan Report Signed Patient: Zenon Navarrete MR#: [id number] : 1960 Acct:[id number] Age/Sex: 64 / M ADM Date: 12/24/24 Loc: HO.CT Attending Dr: Yudith Stucenski [employer] Ordering Physician: Yudith Ochoa NP Date of Service: 12/24/24 Procedure(s): CT chest wo IV con Accession Number(s): [id number] cc: Candice Salas MD; Yudith Ochoa [employer]~ Report Number: [id number]: Total DLP = 157.00 mGy-cm CLINICAL HISTORY: J84.9 - Interstitial pulmonary disease, unspecified CT chest without contrast Comparison: CT/IN/SR - CT CHEST WO IV CON - 04/12/24 07:38 EDT Findings: The heart size is normal. The visualized thyroid and mediastinum are unremarkable. No evidence of pneumonia or edema. Stable lung nodules. For example, no change in the 3 mm nodule within the right posterolateral apex (image 14). No new pulmonary nodules. No evidence of interstitial lung disease. No focal air trapping. No bronchiectasis. The visualized upper abdomen is unremarkable. No acute fractures. IMPRESSION: 1. Stable small pulmonary nodules. No further follow-up necessary unless otherwise clinically warranted. 2. No evidence of interstitial lung disease. This document has been electronically signed by: Yamila Vela MD on 12/24/2024 14:31:53 Dictated By: Yamila Vela MD Signed By: <Electronically signed by Yamila Vela MD in OV> 12/24/24 1432 DD/ 1431 Assessment & Plan Assessment & Plan (1) Cough: Code(s): R05.9 - Cough, unspecified Category: Medical (2) Interstitial lung disease: Code(s): J84.9 - Interstitial pulmonary disease, unspecified Category: Medical (3) Environmental allergies: Code(s): Z91.09 - Other allergy status, other than to drugs and biological substances Category: Medical Plan At this time Zenon reports significant improvement in respiratory symptoms, now continuing with likely allergies contributing to post nasal drip and ear fullness. Will enter referral to process specialist for further testing. Reviewed chest CT which was unremarkable and recent CRP levels WNL. Since respiratory symptoms are infrequent will hold off on Breo. He is aware to call if symptoms change. All questions were answered and patient is in agreement of plan. Will follow up in 6 months or sooner if needed. Orders: Referrals Allergy & Immunology Referral Z91.09 - Other allergy status, other than to drugs and biological substances Medications: Discontinued fluticasone furoate-vilanterol 200-25 mcg/dose (Breo Ellipta) rinse mouth after each use Discontinued Reason: Patient Completed Course 1 inh inhalation DAILY 60 ea 6RF Coding Level of Care Code Est Pt Level 4 (03933) Diagnoses Cough R05.9 Interstitial lung disease J84.9 Environmental allergies Z91.09
[2025-01-25 14:20] VITALS: BP 118/76; PULSE 61; O2SAT 97; BMI 27.2
== END 2025-01-25 14:47 | disposition home or self-care (01) ==
LOC: HO.HPSW 14:14
PROVIDERS: PCP Family Medicine; Visit Provider Nurse Practitioner Family
DX: R05.9 Cough, unspecified (principal); J84.9 Interstitial pulmonary disease, unspecified; Z91.09 Other allergy status, other than to drugs and biological substances
CPT/HCPCS: 99214